=== PATIENT | female | born 1970 | race Caucasian/White ===

== ENCOUNTER → 2018-09-23 08:20 | Outpatient (CLI) | payer BC, SELFPAY ==
--- NOTE | 2018-09-23 08:28 | MM_ITS ---
MM Dig screening mamm BI w/CAD CAD Screening COMPARISON: Digital mammograms with CAD 07/05/2017 and 08/02/2015 INDICATION: There is no personal or family history of breast cancer. TECHNIQUE: Standard CC and MLO images were obtained. R2 CAD reviewed. FINDINGS: Moderate scattered fibroglandular densities are seen in both breasts and the findings are bilateral and symmetrical. There is minimal arterial calcification right breast. There is a subtle and questionable new asymmetric density left breast. This could be a summation shadow but recommend patient return for spot compression views and possibly ultrasound as well. There are no suspicious microcalcifications. IMPRESSION: Moderate diffuse breast density with possible new asymmetric lesion left breast BI-RADS Category: 0 Need Additional Imaging Evaluation RECOMMENDED FOLLOW-UP: IMM - IMMEDIATE FOLLOW-UP RECOMMENDED (A letter has been sent to the patient regarding results of the study.)
--- NOTE | 2018-09-23 08:44 | XR_ITS ---
XR DEXA axial skeleton HISTORY: ITS.REASON: screening ORDERING PHYSICIAN: Jeffry Reed MD PATIENT AGE: 48 years COMPARISON: None FINDINGS: The BMD measured at the Right femoral neck is 0.726 g/cm squared with a T score of -2.2. This is considered Osteopenic according to the World Health Organization criteria. Fracture risk is Moderate. Treatment is advised. L1 L4 density and T score -2.1 consistent with osteopenia IMPRESSION: Osteopenia with moderate fracture risk. Treatment is advised. Recommend follow-up exam September 2020
== END ==
PROVIDERS: PCP Internal Medicine; Visit Provider Obstetrics & Gynecology
DX: Z12.31 Encounter for screening mammogram for malignant neoplasm of breast (principal); Z13.820 Encounter for screening for osteoporosis; Z78.0 Asymptomatic menopausal state
CPT/HCPCS: 77067; 77080

== ENCOUNTER → 2019-10-02 09:09 | Outpatient (CLI) | payer BC, SELFPAY ==
--- NOTE | 2019-10-02 09:09 | XR_ITS ---
PROCEDURE: XR DEXA AXIAL SKELETON CLINICAL HISTORY: f/u osteopenia COMPARISON: No exams were available for comparison FINDINGS: Utilizing the left femoral neck bone mineral density was measured to be 0.66 grams/squared centimeter. Z-score is -0.9. T-score is not reported. Utilizing L1 through L4 vertebrae total bone mineral density is 0.76 grams/squared centimeter. Z-score is -1.8 T-score is not reported. IMPRESSION: normal mineralization. Dictated by: Raleigh Bran 10/02/2019 12:25 Electronically signed by Raleigh Bran in [place] 10/02/2019 12:25
--- NOTE | 2019-10-02 09:09 | MM_ITS ---
PROCEDURE: MM DIG SCREENING MAMM BI W/CAD CLINICAL INDICATION: screening There is no personal or family history of breast cancer. The patient is on estradiol. COMPARISON: [facility] DIG MAMM-SCREEN ADA from 08/02/2015 [facility] DIG MAMM-SCREEN ADA W/CAD from 07/05/2017 [facility] MM Dig screening mamm BI w/CAD from 09/23/2018 TECHNIQUE: Standard CC and MLO images were obtained. Carlos images were performed. FINDINGS: Scattered fibroglandular densities are seen throughout both breasts. The findings of bilateral and symmetrical. There is no new or suspicious lesion in either breast and no suspicious microcalcifications. Carlos images were reviewed showing no suspicious abnormality. IMPRESSION: Fibrofatty parenchyma with no suspicious lesions seen BI-RAD Category: 1 Negative FOLLOW-UP: 1YR 1 Year Follow-up (A letter has been sent to the patient regarding results of the study.) Dictated by: Dr. Tavon Farias MD 10/06/2019 11:[address] Tavon Farias MD in [place] 10/06/2019 11:05
== END ==
PROVIDERS: PCP Obstetrics & Gynecology; Visit Provider Obstetrics & Gynecology
DX: M85.89 Other specified disorders of bone density and structure, multiple sites (principal); Z12.31 Encounter for screening mammogram for malignant neoplasm of breast
CPT/HCPCS: 77063; 77067; 77080

== ENCOUNTER → 2020-08-26 10:15 | Outpatient (CLI) | payer BC, SELFPAY ==
--- NOTE | 2020-08-26 10:21 | XR_ITS ---
PROCEDURE: XR PELVIS 1-2V CLINICAL INDICATION: S/P FALL,RT BUTTOCK PAIN,RT THIGH PAIN Posttraumatic pain COMPARISON: No exams were available for comparison TECHNIQUE: XR Pelvis AP View FINDINGS: No fracture or dislocation is evident. No significant degenerative change. Suture lines present in both right and left aspect and central aspect of the pelvis IMPRESSION: No acute findings. Dictated by: Lester Pfeiffer MD 08/26/2020 10:34 Lester Pfeiffer MD in [place] 08/26/2020 10:34
== END ==
PROVIDERS: PCP Internal Medicine; Visit Provider Internal Medicine
DX: R10.2 Pelvic and perineal pain (principal); M25.551 Pain in right hip; M79.651 Pain in right thigh; W19.XXXA Unspecified fall, initial encounter
CPT/HCPCS: 72170

== ENCOUNTER 2020-09-27 10:39 | Emergency (ER) | payer BC, SELFPAY ==
[2020-09-27 10:45] VITALS: BP 113/65; PULSE 68; RESP 18; TEMP 37.2; O2SAT 98; BMI 28.7
--- NOTE | 2020-09-27 11:11 | HMH.EDUTC ---
[facility] [place] Disposition Clinical Impression: Encounter for laboratory testing for COVID-19 virus, Nausea Disposition: Home, Self-Care Condition on Discharge: Good Instructions: DI for COVID-19 (Suspected or Confirmed ), Coronavirus Disease 2019, Preventing the Spread of Coronavirus Discharge Instructions Additional Instructions: *Monitor Temp, Over the counter Motrin or Tylenol as directed/as needed Tylenol every 4 hours and Motrin every 6 hours (as long as your family doctor has told you that you can take it) for fever or pain. and straight to ER if unable to lower temp less than 101.0 after medication given *Warm salt water gargles may help to soothe the throat *Throat Lozenges *Warm fluids like tea with honey may help to soothe the throat *Sleep elevated *Humidifier/Vaporizer Follow up IMMEDIATELY for new or worsening symptoms or no Noticeable improvement over the next 48-72 hours. 911 for difficulty breathing or swallowing You were tested for today for COVID19 your test result should be back in the next 24-48 hours, you may call to the [facility] to see if your test results are back in the next 48 hours [phone] [facility] hours are 9am-9pm You was given a handout with instructions for Self Quarantine and Self isolation for while you wait on test results and what to do if they are positive If you are positive the Health Dept will be contacting you also Prescriptions: Ondansetron [Zofran 4mg ODT] 4 mg PO TIDP PRN #12 tab PRN Reason: Nausea Transmission Status: Pending to [facility] Referrals: Benjie Wilson [Primary Care Provider] - As needed Forms: Work/School Release Time of Disposition: 11:25 Medical Decision Making - Garrick Inquiry Pt receiving controlled substance: No Garrick was queried for this patient: No Vital Signs: 09/27/20 10:45 Temperature 98.9 F Temperature Source Oral Pulse Rate [Right Brachial] 68 Respiratory Rate 18 Blood Pressure [Right Arm] 113/65 Blood Pressure Mean [Right Arm] 81 Blood Pressure Source [Right Arm] Automatic Cuff Blood Pressure Position [Right Arm] Sitting 02 Sat by Pulse Oximetry 98 Oxygen Delivery Method Room Air - Lab Data Lab results reviewed: Yes: I reviewed the patient's lab results. Orders (Tests/Meds): ORDERS Category Date Time Status Covid-19 Nasal PCR Sendout P&C Stat Lab 09/27/20 10:55 Received Medical Decision Narrative: Discussed CXR and patient declined at this time States that she wanted to get tested for COVID and would follow up with her PCP if it was negative [facility] [place] HPI - General Stated complaint: dyspnea Time Seen by Provider: 09/27/20 11:11 Mode of Arrival: Ambulatory Source of Information: Patient Limitations: No Limitations Description of Symptoms (Recalled from Triage Doc. by RN): PATIENT C/O SOA AND NAUSE X 4-5 DAYS. ALSO C/O MID BACK PAIN. HEENT Symptoms (Recalled from RN notes): No Resp Symptoms (Recalled from RN notes): Yes Skin Symptoms (Recalled from RN notes): No MS Symptoms (Recalled from RN notes): Yes Functional Status (Recalled from RN notes): WNL - History of Present Illness Provider Complaint: Patient state that she has feeling short of breath on and off with nausea for about 5 days States that she wasnt sure if she may have been having asthma attacks or if she may have been around someone with COVID States that she used her inhaler earlier and it helped but she wanted to come in and get tested States that she also been having achy like feeling in her lower back area and wanted to have her urine checked - Related Data Home Medications Medication Instructions Recorded Confirmed omeprazole magnesium 20 mg 20 mg PO BID tab 08/11/18 08/14/19 tablet,delayed release sertraline 50 mg tablet 50 mg PO DAILY 08/11/18 08/14/19 Previous Rx's Medication Instructions Recorded estradiol 1 mg tablet 1 mg PO DAILY #90 tab 08/14/19 Ondansetron [Zofran 4mg ODT] 4 mg PO TIDP PRN #12 tab 09/27/20 Tyson
[2020-09-27 11:27] VITALS: BP 113/65; PULSE 68; RESP 18; TEMP 37.2; O2SAT 98
[2020-09-27 15:56] LABS: Apearance,Urine Clear (Clear); Bilirubin,Urine Negative (Negative); Blood, Urine Negative (Negative); Color,Urine Yellow (Yellow); Glucose,Urine (UA) Negative (Negative); Ketones,Urine Negative (Negative); Protein,Urine Negative (Negative); Specific Gravity, Urine 1.015 (1.005-1.030)
[2020-09-27 15:57] LABS: UTC Leukocyte Esterase,Urine Negative (Negative); UTC Nitrate,Urine Negative (Negative); Urobilinogen,Urine 0.2 EU/dl (0.2)
[2020-09-28 08:38] LABS: Covid-19 Nasal PCR Sendout P&C NEGATIVE
== END 2020-09-27 11:30 | disposition home or self-care (01) ==
PROVIDERS: Emergency Provider Nurse Practitioner; PCP Internal Medicine
DX: Z20.822 Contact with and (suspected) exposure to COVID-19 (principal); R06.02 Shortness of breath; R11.0 Nausea; F17.210 Nicotine dependence, cigarettes, uncomplicated
CPT/HCPCS: 81003; 99202; G0463; U0004

== ENCOUNTER 2020-12-14 11:42 | Emergency (ER) | payer BC, SELFPAY ==
[2020-12-14 11:43] VITALS: BP 123/86; PULSE 82; RESP 20; TEMP 36.8; O2SAT 97; BMI 28.7
--- NOTE | 2020-12-14 11:52 | CT_ITS ---
PROCEDURE: CT HEAD/BRAIN WO CON CLINICAL INDICATION: headache Severe headache with numbness in arms COMPARISON: No exams were available for comparison TECHNIQUE: Axial images obtained. All CT scans at the facility use one or more dose reduction, viz: automated exposure control, ma/kV adjustment per patient size (including targeted exams where dose is matched to indication, i.e. head), or iterative reconstruction technique. FINDINGS: No midline shift, mass effect, intracranial hemorrhage, hydrocephalus, or extra-axial fluid collection is evident. The calvarium has an unremarkable appearance. No mastoid effusion is apparent. There is sparse bony septa in the right mastoid sinus compared to the left side which could be due to prior infection or surgery. No air-fluid levels are evident. No sinus air-fluid level. IMPRESSION: No acute intracranial finding Dictated by: Lester Pfeiffer MD 12/14/2020 13:24 Lester Pfeiffer MD in [place] 12/14/2020 13:24
--- NOTE | 2020-12-14 11:52 | CT_ITS ---
Procedure: CT ANGIO NECK CLINICAL HISTORY: headache Severe headache with numbness in the arms COMPARISON: CT CT ANGIO HEAD from 12/14/2020 TECHNIQUE: IV Contrast: 100ml Isovue 370 Axial images obtained with sagittal and coronal reformats. All CT scans at the facility use one or more dose reduction, viz: automated exposure control, ma/kV adjustment per patient size (including targeted exams where dose is matched to indication, i.e. head), or iterative reconstruction technique. FINDINGS: CTA neck: Unremarkable aortic arch and great vessels. The carotids have an unremarkable appearance. No stenosis, ulcerations, aneurysms, or dissections evident. Small focus of eccentric calcific plaque is present in the left proximal ICA laterally without stenosis. The right vertebral is dominant. No vertebral stenosis or dissection CTA head: No aneurysm, AVM, or major intracranial occlusive process is evident. There is a 7 mm right thyroid nodule. No enhancing lesions are evident. IMPRESSION: Negative CTA of the neck and head Dictated by: Lester Pfeiffer MD 12/14/2020 13:34 Lester Pfeiffer MD in [place] 12/14/2020 13:34
[2020-12-14 12:00] VITALS: BP 139/79; PULSE 73; O2SAT 97
[2020-12-14 12:30] LABS: Basophils # 0.1 K/mm3 (0-0.2); Basophils % 0.8 % (0.1-2.0); Eosinophils # 0.2 K/mm3 (0.0-0.4); Eosinophils % 3.2 % (0.1-12.0); Hematocrit 43.7 % (37.0-47.0); Hemoglobin 14.3 g/dL (12.2-16.2); Lymphocytes # 2.3 K/mm3 (0.7-4.5); Lymphocytes % 38.5 % (10-50); Mean Corpuscular HGB Conc 32.8 g/dL (31.8-35.4); Mean Corpuscular Volume 94.6 fl (81-99); Mean Platelet Volume 7.4 fl (7.4-10.4); Monocytes # 0.3 K/mm3 (0.1-1.0); Monocytes % 4.3 % (1.7-9.3); Neutrophils # 3.2 K/mm3 (1.8-7.8); Neutrophils % 53.3 % (37.0-80.0); Platelet Count 292 K/mm3 (142-424); Red Blood Count 4.62 M/mm3 (4.20-5.40); Red Cell Distribution Width 12.8 % (11.5-17.5); White Blood Count 6.1 K/mm3 (4.8-10.8)
[2020-12-14 12:31] LABS: Chloride 108 mmol/L (98-107)
[2020-12-14 12:32] LABS: Potassium 4.1 mmoL/L (3.5-5.1); Sodium 142 mmol/L (136-145)
--- NOTE | 2020-12-14 12:32 | ECG_ITS ---
APPROVED REPORT Exam: Resting ECG HR:68 bpm ECG Measurements Heart Rate 68 AXES FL 140 P 51 QRSd 82 QRS 62 QT 402 T 57 QTc 427 Conclusion Normal sinus rhythm Normal ECG Electronically signed by : Maykel Ring, 12/15/2020 17:32:45
[2020-12-14 12:34] LABS: Alanine Aminotransferase 26 U/L (12-78); Albumin Level 4.8 g/dl (3.5-5.0); Albumin/Globulin Ratio 1.7 (1.1-1.8); Alkaline Phosphatase 86 U/L (38-126); Anion Gap 12.1 mEq/L (5-15); Aspartate Amino Transferase 39 U/L (14-36); Bilirubin,Total 0.8 mg/dl (0.2-1.3); Blood Urea Nitrogen 12 mg/dl (7-17); Calcium 9.9 mg/dl (8.4-10.2); Carbon Dioxide 26 mmol/L (22.0-30.0); Creatinine Clearance Estimated 98 mL/min (50-200); Estimated Glomerular Filt Rate 76 ml/min (>60); GFR (African American) 92 ML/MIN (>60); Globulin 2.9 g/dL (1.3-3.2); Glucose 109 mg/dl (74-100); Total Protein,Serum 7.7 g/dl (6.3-8.2)
[2020-12-14 12:35] LABS: Magnesium 1.6 mg/dl (1.6-2.3)
--- NOTE | 2020-12-14 12:35 | HMH.EDGENADL ---
ED Disposition Clinical Impression: Headache Disposition: Home, Self-Care Condition on Discharge: Good Additional Instructions: Return for worsening headache numbness weakness or tingling in arms or legs or any other concerns within 8 hours otherwise follow-up with your primary care physician within the next few days Referrals: Benjie Wilson [Primary Care Provider] - - Critical Care Critical Care Time: No Attestation: On 12/14/20, the high probability of a clinically significant, sudden or life threatening deterioration of the following system(s) required my full and direct attention, intervention and personal management. The time I documented below is in addition to time spent performing reported procedures but includes the following listed in this critical care notation. Medical Decision Making - Medical Records Medical records reviewed: Yes: I reviewed the patient's medical records. - Garrick Inquiry Pt receiving controlled substance: No Vital Signs: 12/14/20 11:43 12/14/20 12:00 Temperature 98.2 F Temperature Source Oral Pulse Rate 73 Pulse Rate [Right Radial] 82 Respiratory Rate 20 Blood Pressure 139/79 Blood Pressure [Right Arm] 123/86 Blood Pressure Mean 99 Blood Pressure Mean [Right Arm] 98 Blood Pressure Source [Right Arm] Automatic Cuff Blood Pressure Position [Right Arm] Sitting 02 Sat by Pulse Oximetry 97 97 Oxygen Delivery Method Room Air - Lab Data Lab Results 12/14/20 12:11: WBC 6.1, RBC 4.62, Hgb 14.3, Hct 43.7, MCV 94.6, MCH 31.0, MCHC 32.8, RDW 12.8, Plt Count 292, MPV 7.4, Neut % (Auto) 53.3, Lymph % (Auto) 38.5, [place] % (Auto) 4.3, Eos % (Auto) 3.2, Baso % (Auto) 0.8, Neut # (Auto) 3.2, Lymph # (Auto) 2.3, [place] # (Auto) 0.3, Eos # (Auto) 0.2, Baso # (Auto) 0.1 12/14/20 12:11: Sodium 142, Potassium 4.1, Chloride 108 H, Carbon Dioxide 26, Anion Gap 12.1, BUN 12, Creatinine 0.80, Estimated Creat Clear 98, Estimated GFR 76, Est GFR ( Amer) 92, Glucose 109 H, Calcium 9.9, Magnesium 1.6, Total Bilirubin 0.8, AST 39 H, ALT 26, Alkaline Phosphatase 86, Total Protein 7.7, Albumin 4.8, Globulin 2.9, Albumin/Globulin Ratio 1.7, TSH 1.93 12/14/20 12:11: Serum HCG, Qual Negative Result diagrams: 12/14/20 12:11 12/14/20 12:11 Orders (Tests/Meds): ED MEDICATIONS Discontinued Medications Generic Name Dose Route Start Last Admin Trade Name Dimitri PRN Reason Stop Dose Admin Diphenhydramine HCl 25 mg 12/14/20 11:53 12/14/20 12:04 Diphenhydramine 50mg/Ml Vial IV 12/14/20 11:54 25 mg ONCE ONE Administration Sodium Chloride 1,000 mls @ 999 mls/hr 12/14/20 12:00 12/14/20 12:04 Sod Chlor 0.9% 1000ml Bag IV 12/14/20 13:00 999 mls/hr .Q1H1M TATI Administration Iopamidol 100 ml 12/14/20 13:02 12/14/20 13:03 Iopamidol-370 (76%);100ml Bottle IV 12/14/20 13:03 100 ml ONCE ONE Administration Metoclopramide HCl 10 mg 12/14/20 11:53 12/14/20 12:04 Metoclopramide Hcl 10mg/2ml Vial IVP 12/14/20 11:54 10 mg ONCE ONE Administration Sodium Chloride 50 ml 12/14/20 13:02 12/14/20 13:03 0.9 % Sodium Chloride 50 Ml Vial IV 12/14/20 13:03 50 ml ONCE ONE Administration Sodium Chloride 10 ml 12/14/20 13:02 12/14/20 13:03 Sodium Chloride 0.9% 10ml Syr (Rad Only) IV 12/14/20 13:03 10 ml ONCE ONE Administration ORDERS Category Date Time Status EKG Request [ECG Request by /Marley] Stat Y 12/14/20 11:53 Ordered Medical Decision Narrative: 50-year-old female presents with headache and bilateral numbness for the last few days as above. She has normal neurological exam and NIHSS = 0. She is outside the window for TPA. ABCD 2 score is 0. Symptoms are more consistent with migrainous complex then stroke. CT head and CT angio obtained. No concern for meningitis, subarachnoid hemorrhage, or other emergent pathology at this time. Given Reglan and Benadryl as well. On reassessment at 1:50 PM headache is gone and she is feeling
[2020-12-14 12:39] LABS: HCG Qualitative, Serum Negative (Negative)
--- NOTE | 2020-12-14 12:52 | PC.NURSE ---
pt to CT
[2020-12-14 13:05] LABS: Thyroid Stimulating Hormone 1.93 uIU/mL (0.465-4.68)
[2020-12-14 13:18] VITALS: BP 121/67; PULSE 64; O2SAT 97
[2020-12-14 13:30] VITALS: BP 117/69; PULSE 64; O2SAT 97
[2020-12-14 14:05] VITALS: BP 119/65; PULSE 67; RESP 18; TEMP 36.8; O2SAT 98
== END 2020-12-14 14:05 | disposition home or self-care (01) ==
PROVIDERS: Emergency Provider Emergency Medicine; PCP Internal Medicine
DX: R51.9 Headache, unspecified (principal); R20.0 Anesthesia of skin; F17.210 Nicotine dependence, cigarettes, uncomplicated; R73.9 Hyperglycemia, unspecified
CPT/HCPCS: 70450; 70496; 70498; 80053; 83735; 84443; 84703; 85025; 93005; 96365; 96375; 99282; Q9967

== ENCOUNTER → 2020-12-29 14:32 | Outpatient (CLI) | payer BC, SELFPAY ==
[2020-12-29 15:48] LABS: Basophils % 0.5 % (0.1-2.0); Eosinophils # 0.2 K/mm3 (0.0-0.4); Eosinophils % 2.9 % (0.1-12.0); Hematocrit 40.6 % (37.0-47.0); Hemoglobin 13.4 g/dL (12.2-16.2); Lymphocytes # 2.6 K/mm3 (0.7-4.5); Mean Corpuscular Hemoglobin 31.2 pg (27.0-31.2); Mean Corpuscular Volume 94.5 fl (81-99); Mean Platelet Volume 7.4 fl (7.4-10.4); Monocytes # 0.3 K/mm3 (0.1-1.0); Monocytes % 3.6 % (1.7-9.3); Platelet Count 288 K/mm3 (142-424); White Blood Count 8.2 K/mm3 (4.8-10.8)
[2020-12-29 15:59] LABS: Chloride 104 mmol/L (98-107); Potassium 4.3 mmoL/L (3.5-5.1); Sodium 137 mmol/L (136-145)
[2020-12-29 16:02] LABS: Alanine Aminotransferase 25 U/L (12-78); Albumin Level 4.6 g/dl (3.5-5.0); Alkaline Phosphatase 99 U/L (38-126); Anion Gap 11.3 mEq/L (5-15); Aspartate Amino Transferase 30 U/L (14-36); Bilirubin,Direct 0.1 mg/dl (0.0-0.4); Bilirubin,Indirect 0.4 mg/dL (0.0-0.9); Bilirubin,Total 0.5 mg/dl (0.2-1.3); Bilirubin,Unconjugated 0.5 mg/dL (0.0-1.1); Blood Urea Nitrogen 11 mg/dl (7-17); Calcium 9.6 mg/dl (8.4-10.2); Carbon Dioxide 26 mmol/L (22.0-30.0); Cholesterol 224 mg/dl (140-200); Estimated Glomerular Filt Rate 76 ml/min (>60); GFR (African American) 92 ML/MIN (>60); Glucose 104 mg/dl (74-100); Total Protein,Serum 7.2 g/dl (6.3-8.2); Triglycerides 182 mg/dl (30-150); VLDL Cholesterol 36 mg/dL (0-40)
[2020-12-29 16:03] LABS: Chol/HDL Ratio 3.6 (1-3.5); HDL Cholesterol 62 mg/dl (40-60)
[2020-12-29 16:12] LABS: NT Pro Brain Natriuretic Pep. 208 pg/mL (0-125)
[2020-12-29 16:14] LABS: Direct LDL Cholesterol 126.02 mg/dL (100-129)
[2020-12-29 16:20] LABS: Free T4 (Free Thyroxine) 0.99 ng/dl (0.78-2.19)
[2020-12-29 16:33] LABS: Thyroid Stimulating Hormone 1.66 uIU/mL (0.465-4.68)
[2020-12-29 16:34] LABS: Coronavirus 19 IgG Antibody Negative (Negative); Coronavirus 19 IgM Antibody Negative (Negative)
== END ==
PROVIDERS: PCP Internal Medicine; Visit Provider Internal Medicine Cardiovascular Disease
DX: Z01.812 Encounter for preprocedural laboratory examination (principal); Z20.822 Contact with and (suspected) exposure to COVID-19; R07.9 Chest pain, unspecified; R06.00 Dyspnea, unspecified; R55 Syncope and collapse; R11.0 Nausea; R20.0 Anesthesia of skin; R53.83 Other fatigue; R19.7 Diarrhea, unspecified
CPT/HCPCS: 36415; 80048; 80061; 80076; 83880; 84439; 84443; 85025; 86328; U0003

== ENCOUNTER → 2021-01-11 14:18 | Outpatient (CLI) | payer BC, SELFPAY ==
--- NOTE | 2021-01-11 14:18 | CA_ITS ---
APPROVED REPORT EXAM: Comprehensive 2D, Doppler, and color-flow Echocardiogram [employer] Teacher: Kita Barajas CRT Ht: 5 ft 3 in Wt: 162lbs BSA: 1.77 BP: 116/67 mmHg Indications: SOB, Chase's esphagus 2D Dimensions LVOT 1.95 cm (M/F) 1.5-2.5 LA Volume 34.10 mL LA Volume Index 19.30 mL/m2 (M/F) 16-34 M-Mode Dimensions RVDd 2.19 cm (0.9-2.6) LA Diam 2.78 cm (1.9-4.0) LVDd 5.06 cm (3.5-5.7) Ao Diam 3.25 cm (2.0-3.7) LVDs 3.59 cm (3.5-5.7) IVSd 1.00 cm (0.6-1.1) PWd 1.00 cm (0.6-1.1) EF (Teich) 55.50% FS 29.10% EDV (Teich) 121.60 mL TAPSE 2.13 (<1.7) ESV (Teich) 54.10 mL LV Diastology E Decel Time 157.00 (160-240 msec) E/A Ratio 1.43 MED E' 13.20 (< 7 cm/sec) MED A' 8.80 cm/s E'/MED E' Ratio 6.94 (>14) LAT E' 11.80 (<10 cm/sec) LAT A' 9.00 cm/s E/LAT E' Ratio 7.76 (>14) Aortic Valve AO Peak GR. 6.60 mmHg Mitral Valve MV A Velocity 64.00 (40-130 cm/s) E/A Ratio 1.43 MV Decel. Time 157.00 (160-240 ms) Pulmonary Valve PV Peak Velocity 79.00 (50-150 cm/s) Tricuspid Valve TR P. Velocity 319.00 cm/s RAP Estimate 10.00 mmHg RVSP 50.60 mmHg Left Ventricle Left atrium is normal size, left ventricle is normal size, there is no concentric left ventricular hypertrophy, visually estimated ejection fraction 55% with no regional wall motion abnormality, diastolic parameters are within normal range. Right Ventricle Right atrium and right ventricle are normal size and contractility. Aortic Valve Aortic valve is minimally thickened and fibrosed, there is no aortic stenosis or aortic insufficiency. Mitral Valve Mitral valve is grossly normal, there is trace mitral regurgitation. Tricuspid Valve Tricuspid grossly normal, there is trace tricuspid regurgitation. Tricuspid regurgitation jet velocity is inadequate for calculation of the right ventricular systolic pressure. Pulmonic Valve Pulmonic valve is poorly visualized. Great Vessels Aortic root is normal size. Pericardium No significant pericardial effusion noted. Conclusion 1. Normal left ventricular size, preserved left ventricular systolic function, visually estimated ejection fraction 55% with no regional wall motion abnormality, diastolic parameters are within normal range. 2. Trace mitral and tricuspid regurgitation. 3. No significant pericardial effusion noted. Electronically signed by : Wilton Grigsby, 01/12/2021 09:39:09
--- NOTE | 2021-01-11 15:05 | CT_ITS ---
PROCEDURE: CT CHEST WO CON CLINICAL INDICATION: dyspnea Dyspnea [id number] Smoker COMPARISON: No exams were available for comparison TECHNIQUE: Axial images obtained with sagittal and coronal reformats. All CT scans at the facility use one or more dose reduction, viz: automated exposure control, ma/kV adjustment per patient size (including targeted exams where dose is matched to indication, i.e. head), or iterative reconstruction technique. FINDINGS: HEART AND MEDIASTINAL STRUCTURES: No mediastinal or hilar mass or adenopathy. There is some mixed fat and soft tissue density in the anterior mediastinum having the appearance of residual thymic tissue LUNGS AND PLEURAL SPACES: COPD changes with some scattered areas of scarring. There is evidence of old granulomatous disease. No lobar consolidation or suspicious nodules evident. No effusions. BONY STRUCTURES: No acute bony abnormalities apparent. UPPER ABDOMEN: Prior cholecystectomy. ADDITIONAL FINDINGS: There are few scattered small axillary lymph nodes. IMPRESSION: COPD with evidence of old granulomatous disease. No acute finding. Dictated by: Lester Pfeiffer MD 01/12/2021 05:59 Lester Pfeiffer MD in [place] 01/12/2021 05:59
== END ==
PROVIDERS: PCP Internal Medicine; Visit Provider Internal Medicine Cardiovascular Disease
DX: R07.9 Chest pain, unspecified (principal); R06.00 Dyspnea, unspecified; R53.83 Other fatigue; K21.9 Gastro-esophageal reflux disease without esophagitis
CPT/HCPCS: 71250; 93306

== ENCOUNTER → 2021-01-16 08:05 | Outpatient (CLI) | payer BC, SELFPAY ==
[2021-01-16 09:11] LABS: Anion Gap 8.1 mEq/L (5-15); Blood Urea Nitrogen 11 mg/dl (7-17); Calcium 9.6 mg/dl (8.4-10.2); Carbon Dioxide 27 mmol/L (22.0-30.0); Chloride 107 mmol/L (98-107); Estimated Glomerular Filt Rate 89 ml/min (>60); GFR (African American) 107 ML/MIN (>60); Glucose 94 mg/dl (74-100); Potassium 5.1 mmoL/L (3.5-5.1); Sodium 137 mmol/L (136-145)
[2021-01-16 10:09] LABS: Coronavirus 19 IgG Antibody Negative (Negative); Coronavirus 19 IgM Antibody Negative (Negative)
== END ==
PROVIDERS: Internal Medicine Cardiovascular Disease; Visit Provider Surgery
DX: Z01.812 Encounter for preprocedural laboratory examination (principal); Z11.52 Encounter for screening for COVID-19; Z13.810 Encounter for screening for upper gastrointestinal disorder; K22.70 Barrett's esophagus without dysplasia; R07.9 Chest pain, unspecified; R06.00 Dyspnea, unspecified; R19.7 Diarrhea, unspecified; K21.9 Gastro-esophageal reflux disease without esophagitis; E78.5 Hyperlipidemia, unspecified; R20.0 Anesthesia of skin; R53.83 Other fatigue; Z72.0 Tobacco use; Z12.11 Encounter for screening for malignant neoplasm of colon; Z86.010 Personal history of colon polyps
CPT/HCPCS: 36415; 80048; 86328

== ENCOUNTER 2021-01-18 08:24 | Day surgery (SDC) | payer BC, SELFPAY ==
[2021-01-11 13:36] VITALS: BMI 28.7
[2021-01-18] VITALS (7 sets, daily range): BP systolic 110–128; BP diastolic 69–77; PULSE 62–78; RESP 16–18; TEMP 36.4–36.6; O2SAT 97–100
--- NOTE | 2021-01-18 09:41 | P.PN_ITS ---
[facility] Anesthesia Checklist - Patient Identification Patient Identification: Arm Band - Structural Data Admitted From: Home Planned Operative Procedure/s: egd/colonoscopy Consent for Planned Operative Procedure(s) Verified: Yes Verified Documents: Surgical Consent, History and Physical - NPO Status Verified Time NPO: 00:00 - Additional verifications Anesthesia Reactions: No - Airway Assessment C-Spine Mobility Assessed: Yes (mp2) TMJ Mobility Assessed: Yes Dentition: Good Dentition - Neurological Assessment Level of Consciousness: Awake, Alert - Anesthesia Plan Anesthesia Risk discussed: Yes Anesthesia Plan: Verified ASA Class: II Anesthesia Type: MAC [facility] History I have reviewed the patient's past medical history: Yes Medical History: Reports:: Gastroesophageal Reflux Disease(GERD), Hyperlipidemia Denies:: Cancer, Diabetes Mellitus Type 1, Diabetes Mellitus Type 2, Internal Pacemaker, MRSA, Seizures *Have you ever received a pneumonia vaccine?: No *Have you received a flu vaccine this season?: No Anesthesia experience/problems:: nac Other Surgeries: Yes: Cholecystectomy, Colonoscopy, , Dilation and Curettage, Hysterectomy-Total, Tubal Ligation, Other. No: Pacemaker Amputation: No Fractures: No - *Social History Smoking Status: Current every day smoker Tobacco Type: cigarettes # Packs/Day (cigarettes): 1 Alcohol Intake: never Alcohol Intake Frequency:: other Substance Use Type: denies use *Occupational Status:: employed Housing: house Household Members: spouse *Travel in the last 8 weeks: None Family Hx:: No significant family history
--- NOTE | 2021-01-18 10:16 | HMH.SCOPE ---
- Procedure: Date: 01/18/21 Patient Date of :: 1970 Procedure Performed:: 1. Esophagogastroduodenoscopy with biopsies 2. Total colonoscopy to terminal ileum with polypectomy by snare and biopsy forceps Indications:: Patient is a 50-year-old female referred by Dr. Benjie Wilson for colonoscopy and EGD. She had undergone colonoscopy by Dr. Blake in 1996 which was unremarkable. She had upper endoscopy and colonoscopy performed by Dr. 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 She also had polyps removed from her colon. She had a follow-up upper endoscopy 6 months later on 02/15/2014. Dr. Chase performed colonoscopy on 08/03/2015 and recommended a 3-year follow-up. Of note, pathology from last upper endoscopy revealed reactive changes and chronic carditis without intestinal metaplasia. She has recently had some substernal chest pain. She does take Prilosec. Performing Provider:: Drew Webster MD Referring Provider:: Benjie Wilson MD Sedation:: MAC sedation Procedure:: Attention was first turned to upper endoscopy. Adequate intravenous sedation was achieved. Olympus endoscope was inserted via the oropharynx advanced to the esophagus. Gastroesophageal junction was encountered at approximately 38 cm from the incisors. There was some findings possibly consistent with Chase's esophagus. Stomach was cannulated and insufflated. Retroflexion revealed no evidence of any pathologic internal hemorrhoids. There were a couple of diminutive likely fundic gland polyps within the stomach. Gastric antral mucosal biopsies obtained for CLOtest for H. pylori. Pylorus was traversed. Duodenal bulb and duodenal sweep are unremarkable. Endoscope was withdrawn into the stomach. Gastric mucosal biopsies obtained for histopathologic analysis. Couple biopsies were obtained of the diminutive likely fundic gland polyps. The endoscope was withdrawn into the distal esophagus and numerous biopsies were obtained at the gastroesophageal junction to assess for possible Chase's esophagus. Endoscope was withdrawn. Patient was repositioned for colonoscopy. Variable stiffness Olympus colonoscope was inserted via the anus. It was advanced to the cecum. Colonic preparation was fair. Despite irrigation good visualization could not be achieved as there was still adherent to the colonic calles. The ileocecal valve and appendiceal orifice were identified and the colonoscope was advanced into the terminal ileum which appeared grossly normal. There was noted to be a possible polyp versus suction polyp in the cecum and this was removed with cold cutting snare. In the ascending colon there was a small adenomatous appearing polyp removed with cold cutting snare. At the hepatic flexure there was a small diminutive adenomatous polyp removed with cold cutting snare. As the colonoscope was withdrawn careful surveillance was carried out and irrigation was performed. However there was adherent stool too much of the colonic mucosal calles. In the descending colon there was a possible polyp. However the visualization was lost. Despite numerous readvancement and withdrawal of the colonoscope with reexamination of the area for prolonged period of time there was noted to be no evidence of any polyp. In the distal rectum there was a tiny diminutive hyperplastic appearing polyp removed with cold biopsy forceps. Retroflexion within the rectum revealed no evidence of any pathologic internal hemorrhoids. Colonoscope was withdrawn. Findings:: Possible Chase's esophagus Small likely fundic gland gastric polyps Fair colonic preparation Polyps as noted above Recommendations:: Pending the pathology likely repeat colonoscopy 1 year with alternative bowel preparation given the suboptimal bowel prep and findings of polyps. May need upper endoscopy as well pending the biopsies of the gastroeso
== END 2021-01-18 10:54 | disposition home or self-care (01) ==
LOC: OUTP 08:25
PROVIDERS: PCP Internal Medicine; Visit Provider Surgery
PROC: 0DJ08ZZ Inspection of Upper Intestinal Tract, Via Natural or Artificial Opening Endoscopic (ICD-10-PCS; CPT 43235; principal; 2021-01-18 09:30)
DX: Z12.11 Encounter for screening for malignant neoplasm of colon (principal); K63.5 Polyp of colon; K62.89 Other specified diseases of anus and rectum; K22.9 Disease of esophagus, unspecified; K31.9 Disease of stomach and duodenum, unspecified; Z87.19 Personal history of other diseases of the digestive system; Z86.010 Personal history of colon polyps; Z79.899 Other long term (current) drug therapy; K21.9 Gastro-esophageal reflux disease without esophagitis; E78.5 Hyperlipidemia, unspecified; Z90.49 Acquired absence of other specified parts of digestive tract; Z72.0 Tobacco use
CPT/HCPCS: 45385; 43239; 87339

== ENCOUNTER → 2021-01-26 11:51 | Outpatient (CLI) | payer BC, SELFPAY ==
[2021-01-26 12:14] LABS: Basophils # 0.1 K/mm3 (0-0.2); Basophils % 0.7 % (0.1-2.0); Eosinophils # 0.2 K/mm3 (0.0-0.4); Eosinophils % 3.6 % (0.1-12.0); Hematocrit 41.6 % (37.0-47.0); Hemoglobin 14.1 g/dL (12.2-16.2); Lymphocytes # 2.9 K/mm3 (0.7-4.5); Lymphocytes % 44.3 % (10-50); Mean Corpuscular HGB Conc 33.8 g/dL (31.8-35.4); Mean Corpuscular Hemoglobin 31.7 pg (27.0-31.2); Mean Corpuscular Volume 93.8 fl (81-99); Mean Platelet Volume 7.9 fl (7.4-10.4); Monocytes # 0.3 K/mm3 (0.1-1.0); Monocytes % 5.1 % (1.7-9.3); Neutrophils % 46.3 % (37.0-80.0); Platelet Count 307 K/mm3 (142-424); Red Blood Count 4.44 M/mm3 (4.20-5.40); White Blood Count 6.5 K/mm3 (4.8-10.8)
[2021-02-02 13:10] LABS: Alpha-1-Antitrypsin 132 mg/dL (101-187)
== END ==
PROVIDERS: Visit Provider Internal Medicine Pulmonary Disease
DX: J44.9 Chronic obstructive pulmonary disease, unspecified (principal)
CPT/HCPCS: 36415; 82103; 82104; 85025

== ENCOUNTER → 2021-02-24 13:04 | Outpatient (CLI) | payer BC, SELFPAY | PROVIDERS: PCP Internal Medicine; Visit Provider Internal Medicine Pulmonary Disease | DX: R06.09 Other forms of dyspnea (principal) | CPT/HCPCS: 94060; 94640; 94726; 94729 ==

== ENCOUNTER → 2021-03-09 10:53 | Outpatient (CLI) | payer BC, SELFPAY | PROVIDERS: PCP Internal Medicine; Visit Provider Internal Medicine Pulmonary Disease | DX: G47.33 Obstructive sleep apnea (adult) (pediatric) (principal) | CPT/HCPCS: G0399 ==

== ENCOUNTER 2021-08-28 13:34 | Emergency (ER) | payer BC, SELFPAY ==
[2021-08-28 14:30] VITALS: BP 107/64; PULSE 71; RESP 18; TEMP 36.9; O2SAT 98; BMI 24.8
--- NOTE | 2021-08-28 14:47 | HMH.EDUTC ---
[facility] [place] Disposition Clinical Impression: Bronchitis Sinusitis Qualifiers: Sinusitis location: unspecified location Chronicity: unspecified Qualified Code(s): J32.9 - Chronic sinusitis, unspecified Disposition: Home, Self-Care Condition on Discharge: Good Instructions: Sinusitis, DI for Sinusitis, Acute Bronchitis Additional Instructions: ? Start antibiotic today. Be sure to complete entire prescription even if feeling better ? Monitor temp. Tylenol every 4 hours as needed and / or ibuprofen every 6 hours as needed ( As long as your primary care physician has told you that it ok to take both. For fever/aches/pains ER if no less than 101 despite Tylenol or Motrin ? Humidifier/vaporizer or hot steamy shower ? Inhaler every 4-6 hours as needed like we discussed. If unsure how to use it, ask pharmacist to demonstrate how. Should help open airways and improve cough, wheezing, and shortness of breath *Tessalon Perles will not cause drowsiness but use at bedtime to help stop cough so that you may get some rest. *Start steroid today. Helps with inflammation therefore, cough and wheezing. Follow directions on the package. Reviewed side effects. Patient reports taking them before. Follow up IMMEDIATELY for new or worsening of symptoms OR no noticeable improvement over the next 48-72 hours. 911 immediately for any life threatening symptoms such as chest pain or difficulty breathing You were tested for today for Upper Respiratory panel with COVID19 your test result should be back in the next 24-48 hours, you Check your results on the [facility] for your COVID test results if you have trouble logging on you may call You was given a handout with instructions for Self Quarantine and Self isolation for while you wait on test results and what to do if they are positive If you are positive the Health Dept will be contacting you also Make sure to take your Vitamins Vit. C Vit D and Zinc if you can take them Prescriptions: Albuterol Sulfate [Proventil-HFA 90mcg/puff Inh] 1 - 2 puffs IH Q6HP PRN #1 each PRN Reason: Shortness Of Breath Transmission Status: Pending to [facility] Benzonatate [Benzonatate 100mg cap] 100 mg PO Q8HP PRN #15 cap PRN Reason: Cough Transmission Status: Pending to [facility] methylPREDNISolone [Medrol 4mg tab] 4 mg PO DIRECTED #21 tab Transmission Status: Pending to [facility] Azithromycin [Z-Aiden 250mg Tab] 250 mg PO DIRECTED #6 tab Transmission Status: Pending to [facility] Referrals: Benjie Wilson [Primary Care Provider] - As needed Forms: Work/School Release Time of Disposition: 15:02 Medical Decision Making - Garrick Inquiry Pt receiving controlled substance: No Garrick was queried for this patient: No Vital Signs: 08/28/21 14:30 Temperature 98.5 F Temperature Source Oral Pulse Rate [Right Brachial] 71 Respiratory Rate 18 Blood Pressure [Right Arm] 107/64 L Blood Pressure Mean [Right Arm] 78 Blood Pressure Source [Right Arm] Automatic Cuff Blood Pressure Position [Right Arm] Sitting 02 Sat by Pulse Oximetry 98 Oxygen Delivery Method Room Air Orders (Tests/Meds): ORDERS Category Date Time Status Covid-19 Nasal PCR ([facility]) Routine Lab 08/28/21 14:37 Ordered Medical Decision Narrative: Patient states that she has taken both azithromycin and Medrol in the past without reactions or complications [facility] [place] HPI - General Stated complaint: cough sob runny nose congestion headache Time Seen by Provider: 08/28/21 14:47 Mode of Arrival: Ambulatory Source of Information: Patient Limitations: No Limitations Description of Symptoms (Recalled from Triage Doc. by RN): PATIENT C/O CONGESTION, NAUSEA, AND PRODUCTIVE COUGH X 2 DAYS HEENT Symptoms (Recalled from RN notes): No Resp Symptoms (Recalled from RN notes): Yes Skin Symptoms (Recalled from RN notes): No MS Symptoms (Recalled from RN notes): No Functional Sta
[2021-08-28 15:25] VITALS: BP 107/64; PULSE 71; RESP 18; TEMP 36.9; O2SAT 98
== END 2021-08-28 15:26 | disposition home or self-care (01) ==
PROVIDERS: Emergency Provider Nurse Practitioner; PCP Internal Medicine
DX: J20.9 Acute bronchitis, unspecified (principal); J32.9 Chronic sinusitis, unspecified; K21.9 Gastro-esophageal reflux disease without esophagitis; F17.210 Nicotine dependence, cigarettes, uncomplicated
CPT/HCPCS: 99202; C9803; G0463; U0003; U0005

== ENCOUNTER → 2021-08-29 10:55 | Outpatient (CLI) | payer BC, SELFPAY ==
--- NOTE | 2021-08-29 10:56 | MM_ITS ---
PROCEDURE INFORMATION: Exam: MG Bilateral Screening 3D Mammography Exam date and time: 08/29/2021 10:56 AM Age: 51 years old Clinical indication: Encounter for screening mammogram for malignant neoplasm of breast TECHNIQUE: Imaging protocol: Bilateral screening tomosynthesis and 2D mammography including computer-aided detection (CAD) when performed. COMPARISON: 1. MG MM DIG SCREENING MAMM BI W/CAD 10/02/2019 9:21 AM 2. MG SCBI MM Dig screening mamm BI w/CAD 09/23/2018 9:20 AM FINDINGS: MAMMOGRAPHY: Breast composition: The breast tissue is composed of scattered areas of fibroglandular density. Mass: None. Architectural distortion: None. Calcifications: No suspicious calcifications. Asymmetric density: None. Skin thickening: None. Axillary adenopathy: None. IMPRESSION: No mammographic evidence of malignancy. Annual screening is recommended unless otherwise clinically indicated. ASSESSMENT: BI-RADS Category 1: Negative
== END ==
PROVIDERS: PCP Internal Medicine; Visit Provider Internal Medicine
DX: Z12.31 Encounter for screening mammogram for malignant neoplasm of breast (principal)
CPT/HCPCS: 77063; 77067

== ENCOUNTER → 2021-10-16 14:38 | Outpatient (CLI) | payer BC, SELFPAY ==
[2021-10-16 17:28] LABS: Basophils % 0.7 % (0.1-2.0); Eosinophils # 0.2 K/mm3 (0.0-0.4); Eosinophils % 3.6 % (0.1-12.0); Hematocrit 41.5 % (37.0-47.0); Hemoglobin 13.3 g/dL (12.2-16.2); Lymphocytes # 2.7 K/mm3 (0.7-4.5); Mean Corpuscular HGB Conc 32.1 g/dL (31.8-35.4); Mean Corpuscular Hemoglobin 32.1 pg (27.0-31.2); Mean Platelet Volume 8.9 fl (7.4-10.4); Monocytes # 0.3 K/mm3 (0.1-1.0); Monocytes % 5.1 % (1.7-9.3); Neutrophils % 47.6 % (37.0-80.0); Platelet Count 319 K/mm3 (142-424); Red Blood Count 4.16 M/mm3 (4.20-5.40); Red Cell Distribution Width 13.1 % (11.5-17.5); White Blood Count 6.3 K/mm3 (4.8-10.8)
[2021-10-16 18:18] LABS: Alanine Aminotransferase 22 U/L (12-78); Albumin Level 4.4 g/dl (3.5-5.0); Albumin/Globulin Ratio 1.8 (1.1-1.8); Alkaline Phosphatase 97 U/L (38-126); Anion Gap 11.5 mEq/L (5-15); Aspartate Amino Transferase 40 U/L (14-36); Bilirubin,Total 0.7 mg/dl (0.2-1.3); Blood Urea Nitrogen 11 mg/dl (7-17); Calcium 9.3 mg/dl (8.4-10.2); Carbon Dioxide 29 mmol/L (22.0-30.0); Chloride 103 mmol/L (98-107); Chol/HDL Ratio 3.2 (1-3.5); Cholesterol 195 mg/dl (140-200); Estimated Glomerular Filt Rate 88 ml/min (>60); GFR (African American) 107 ML/MIN (>60); Globulin 2.5 g/dL (1.3-3.2); Glucose 60 mg/dl (74-100); HDL Cholesterol 61 mg/dl (40-60); Potassium 4.5 mmoL/L (3.5-5.1); Sodium 139 mmol/L (136-145); Total Protein,Serum 6.9 g/dl (6.3-8.2); Triglycerides 101 mg/dl (30-150); VLDL Cholesterol 20 mg/dL (0-40)
[2021-10-16 18:28] LABS: Direct LDL Cholesterol 109.51 mg/dL (100-129)
== END ==
PROVIDERS: Visit Provider Internal Medicine
DX: R06.00 Dyspnea, unspecified (principal)
CPT/HCPCS: 80053; 80061; 85025

== ENCOUNTER 2022-03-12 11:44 | Emergency (ER) | payer BC, SELFPAY ==
[2022-03-12 12:10] VITALS: BP 121/72; PULSE 82; RESP 19; TEMP 37.1; O2SAT 98; BMI 25.9
[2022-03-12 12:22] LABS: Apearance,Urine Clear (Clear); Bilirubin,Urine Negative (Negative); Blood, Urine Negative (Negative); Color,Urine Yellow (Yellow); Glucose,Urine (UA) Negative (Negative); Ketones,Urine Negative (Negative); Protein,Urine Trace (Negative); Specific Gravity, Urine 1.025 (1.005-1.030); UTC Leukocyte Esterase,Urine Negative (Negative); UTC Nitrate,Urine Negative (Negative); Urobilinogen,Urine 0.2 EU/dl (0.2)
--- NOTE | 2022-03-12 12:42 | HMH.EDUTC ---
[facility] [place] Clinical Impression: Back ache Qualifiers: Back pain location: back pain in unspecified location Chronicity: acute Back pain laterality: bilateral Qualified Code(s): M54.9 - Dorsalgia, unspecified Headache Qualifiers: Headache type: unspecified Headache chronicity pattern: acute headache Intractability: not intractable Qualified Code(s): R51.9 - Headache, unspecified Disposition: Home, Self-Care Condition on Discharge: Fair Instructions: Low Back Pain, DI for Low Back Pain, DI for Headache Additional Instructions: Follow-up with your primary care physician in about 3 to 4 days if you do not feel better. Return to the emergency department immediately if you feel worse in any way. Prescriptions: Ketorolac Tromethamine [Toradol 10mg tablet] 10 mg PO Q6HP PRN #12 tab MDD 40mg/day PRN Reason: Pain Transmission Status: Received by [facility] Referrals: Benjie Wilson MD [Primary Care Provider] - Time of Disposition: 12:59 Medical Decision Making - Garrick Inquiry Pt receiving controlled substance: No Garrick was queried for this patient: No Vital Signs: 03/12/22 12:10 03/12/22 13:08 03/12/22 13:34 Temperature 98.8 F 98.9 F Temperature Source Oral Oral Pulse Rate 80 Pulse Rate [Left Brachial] 82 81 Respiratory Rate 19 16 18 Blood Pressure 139/80 Blood Pressure [Left Arm] 121/72 118/73 Blood Pressure Mean 92 Blood Pressure Mean [Left Arm] 88 88 Blood Pressure Source Blood Pressure Source [Left Arm] Automatic Cuff Blood Pressure Position Blood Pressure Position [Left Arm] Sitting Sitting 02 Sat by Pulse Oximetry 98 98 96 Oxygen Delivery Method Room Air Room Air Room Air 03/12/22 14:04 03/12/22 14:30 Temperature 98.0 F Temperature Source Pulse Rate 81 80 Pulse Rate [Left Brachial] Respiratory Rate 18 Blood Pressure 125/70 125/70 Blood Pressure [Left Arm] Blood Pressure Mean 102 Blood Pressure Mean [Left Arm] Blood Pressure Source Automatic Cuff Blood Pressure Source [Left Arm] Blood Pressure Position Sitting Blood Pressure Position [Left Arm] 02 Sat by Pulse Oximetry 97 Oxygen Delivery Method Room Air - Lab Data Lab results reviewed: Yes: I reviewed the patient's lab results. Lab Results 03/12/22 12:07: Urine Color Yellow, Urine Appearance Clear, Urine pH 7.0, Ur Specific [place] 1.025, Urine Protein Trace, Urine Glucose (UA) Negative, Urine Ketones Negative, Urine Blood Negative, Urine Nitrate Negative, Urine Bilirubin Negative, Urine Urobilinogen 0.2, Ur Leukocyte Esterase Negative 03/12/22 12:15: Urine Color Yellow, Urine Appearance Clear, Urine pH 6.5, Ur Specific [place] 1.015, Urine Protein Negative, Urine Glucose (UA) Negative, Urine Ketones Negative, Urine Blood Trace-i, Urine Nitrate Negative, Urine Bilirubin Negative, Urine Urobilinogen 0.2, Ur Leukocyte Esterase Negative, Urine RBC 10-20, Urine WBC Occasional, Ur Squamous Epith Cells 10-20, Urine Bacteria 2+ 03/12/22 13:26: WBC 4.3 L, RBC 4.10 L, Hgb 12.4, Hct 40.4, MCV 98.5, MCH 30.3, MCHC 30.7 L, RDW 13.1, Plt Count 206, MPV 8.1, Neut % (Auto) 88.5 H, Lymph % (Auto) 4.9 L, Real % (Auto) 4.0, Eos % (Auto) 1.7, Baso % (Auto) 0.9, Neut # (Auto) 3.8, Lymph # (Auto) 0.2 L, Real # (Auto) 0.2, Eos # (Auto) 0.1, Baso # (Auto) 0.0, Total Counted 100, Neutrophils % (Manual) 89 H, Lymphocytes % (Manual) 8 L, Monocytes % (Manual) 2, Eosinophils % (Manual) 1, Platelet Estimate Normal, RBC Morphology Normal 03/12/22 13:26: Sodium 137, Potassium 3.5, Chloride 105, Carbon Dioxide 27, Anion Gap 8.5, BUN 9, Creatinine 0.70, Estimated Creat Clear 104, Estimated GFR 88, Est GFR ( Amer) 106, Glucose 106 H, Calcium 9.1, Total Bilirubin 0.4, AST 34, ALT 21, Alkaline Phosphatase 95, Total Protein 7.0, Albumin 4.3, Globulin 2.7, Albumin/Globulin Ratio 1.6 Result diagrams: 03/12/22 13:26 03/12/22 13:26 Orders (Tests/Meds): ED MEDICATIONS Discontinued Medications Generic Name Do
--- NOTE | 2022-03-12 12:55 | PC.NURSE ---
PATIENT SENT TO ER PER Reena HUGGINS APRN FOR FURTHER EVALUATION. REPORT GIVEN TO Yael ZEE RN BY Reena HUGGINS APRN
[2022-03-12 13:07] VITALS: BMI 27.4
[2022-03-12 13:08] VITALS: BP 118/73; PULSE 81; RESP 16; TEMP 37.2; O2SAT 98; BMI 27.4
[2022-03-12 13:23] LABS: Microscopic, Urine URINE MICROSCOPIC (MICROSCOPIC)
[2022-03-12 13:27] LABS: Appearance,Urine CLEAR (Clear); Bilirubin,Urine Negative (Negative); Blood, Urine TRACE-I (Negative); Color,Urine YELLOW (Yellow); Glucose,Urine (UA) Negative (Negative); Ketones,Urine Negative (Negative); Leukocyte Esterase,Urine Negative (Negative); Nitrate,Urine Negative (Negative); PH,Urine 6.5 (5.0-8.5); Protein,Urine Negative (Negative); Specific Gravity, Urine 1.015 (1.005-1.030); Urobilinogen,Urine 0.2 EU/dl (0.2)
[2022-03-12 13:33] LABS: Basophils % 0.9 % (0.1-2.0); Eosinophils # 0.1 K/mm3 (0.0-0.4); Eosinophils % 1.7 % (0.1-12.0); Hematocrit 40.4 % (37.0-47.0); Hemoglobin 12.4 g/dL (12.2-16.2); Lymphocytes # 0.2 K/mm3 (0.7-4.5); Lymphocytes % 4.9 % (10-50); Mean Corpuscular HGB Conc 30.7 g/dL (31.8-35.4); Mean Corpuscular Hemoglobin 30.3 pg (27.0-31.2); Mean Corpuscular Volume 98.5 fl (81-99); Mean Platelet Volume 8.1 fl (7.4-10.4); Monocytes # 0.2 K/mm3 (0.1-1.0); Neutrophils # 3.8 K/mm3 (1.8-7.8); Neutrophils % 88.5 % (37.0-80.0); Platelet Count 206 K/mm3 (142-424); Red Cell Distribution Width 13.1 % (11.5-17.5); White Blood Count 4.3 K/mm3 (4.8-10.8)
[2022-03-12 13:34] VITALS: BP 139/80; PULSE 80; RESP 18; O2SAT 96
[2022-03-12 13:34] LABS: MANUAL DIFFERENTIAL MANUAL DIFFERENTIAL (MANUAL DIFF)
[2022-03-12 13:38] LABS: Chloride 105 mmol/L (98-107); Sodium 137 mmol/L (136-145)
--- NOTE | 2022-03-12 13:38 | HMH.EDGENADL ---
ED Disposition Clinical Impression: Back ache Qualifiers: Back pain location: back pain in unspecified location Chronicity: acute Back pain laterality: bilateral Qualified Code(s): M54.9 - Dorsalgia, unspecified Headache Qualifiers: Headache type: unspecified Headache chronicity pattern: acute headache Intractability: not intractable Qualified Code(s): R51.9 - Headache, unspecified Disposition: Home, Self-Care Condition on Discharge: Fair Instructions: DI for Headache, Low Back Pain, DI for Low Back Pain Additional Instructions: Follow-up with your primary care physician in about 3 to 4 days if you do not feel better. Return to the emergency department immediately if you feel worse in any way. Prescriptions: Ketorolac Tromethamine [Toradol 10mg tablet] 10 mg PO Q6HP PRN #12 tab MDD 40mg/day PRN Reason: Pain Transmission Status: Pending to [facility] Referrals: Benjie Wilson MD [Primary Care Provider] - - Critical Care Critical Care Time: No Attestation: On 03/12/22, the high probability of a clinically significant, sudden or life threatening deterioration of the following system(s) required my full and direct attention, intervention and personal management. The time I documented below is in addition to time spent performing reported procedures but includes the following listed in this critical care notation. Medical Decision Making - Garrick Inquiry Pt receiving controlled substance: No Vital Signs: 03/12/22 12:10 03/12/22 13:08 03/12/22 13:34 Temperature 98.8 F 98.9 F Temperature Source Oral Oral Pulse Rate 80 Pulse Rate [Left Brachial] 82 81 Respiratory Rate 19 16 18 Blood Pressure 139/80 Blood Pressure [Left Arm] 121/72 118/73 Blood Pressure Mean 92 Blood Pressure Mean [Left Arm] 88 88 Blood Pressure Source [Left Arm] Automatic Cuff Blood Pressure Position [Left Arm] Sitting Sitting 02 Sat by Pulse Oximetry 98 98 96 Oxygen Delivery Method Room Air Room Air Room Air 03/12/22 14:04 Temperature Temperature Source Pulse Rate 81 Pulse Rate [Left Brachial] Respiratory Rate Blood Pressure 125/70 Blood Pressure [Left Arm] Blood Pressure Mean 102 Blood Pressure Mean [Left Arm] Blood Pressure Source [Left Arm] Blood Pressure Position [Left Arm] 02 Sat by Pulse Oximetry 97 Oxygen Delivery Method Room Air - Lab Data Lab results reviewed: Yes: I reviewed the patient's lab results. Lab Results 03/12/22 12:07: Urine Color Yellow, Urine Appearance Clear, Urine pH 7.0, Ur Specific [place] 1.025, Urine Protein Trace, Urine Glucose (UA) Negative, Urine Ketones Negative, Urine Blood Negative, Urine Nitrate Negative, Urine Bilirubin Negative, Urine Urobilinogen 0.2, Ur Leukocyte Esterase Negative 03/12/22 12:15: Urine Color Yellow, Urine Appearance Clear, Urine pH 6.5, Ur Specific [place] 1.015, Urine Protein Negative, Urine Glucose (UA) Negative, Urine Ketones Negative, Urine Blood Trace-i, Urine Nitrate Negative, Urine Bilirubin Negative, Urine Urobilinogen 0.2, Ur Leukocyte Esterase Negative, Urine RBC 10-20, Urine WBC Occasional, Ur Squamous Epith Cells 10-20, Urine Bacteria 2+ 03/12/22 13:26: WBC 4.3 L, RBC 4.10 L, Hgb 12.4, Hct 40.4, MCV 98.5, MCH 30.3, MCHC 30.7 L, RDW 13.1, Plt Count 206, MPV 8.1, Neut % (Auto) 88.5 H, Lymph % (Auto) 4.9 L, [place] % (Auto) 4.0, Eos % (Auto) 1.7, Baso % (Auto) 0.9, Neut # (Auto) 3.8, Lymph # (Auto) 0.2 L, [place] # (Auto) 0.2, Eos # (Auto) 0.1, Baso # (Auto) 0.0, Total Counted 100, Neutrophils % (Manual) 89 H, Lymphocytes % (Manual) 8 L, Monocytes % (Manual) 2, Eosinophils % (Manual) 1, Platelet Estimate Normal, RBC Morphology Normal 03/12/22 13:26: Sodium 137, Potassium 3.5, Chloride 105, Carbon Dioxide 27, Anion Gap 8.5, BUN 9, Creatinine 0.70, Estimated Creat Clear 104, Estimated GFR 88, Est GFR ( Amer) 106, Glucose 106 H, Calcium 9.1, Total Bilirubin 0.4, AST 34, ALT 21, Alkaline Phosphatase 95, Total Protein 7.0, Albumin 4.3, Dionne
[2022-03-12 13:39] LABS: Potassium 3.5 mmoL/L (3.5-5.1)
[2022-03-12 13:41] LABS: Alanine Aminotransferase 21 U/L (12-78); Albumin Level 4.3 g/dl (3.5-5.0); Albumin/Globulin Ratio 1.6 (1.1-1.8); Alkaline Phosphatase 95 U/L (38-126); Anion Gap 8.5 mEq/L (5-15); Aspartate Amino Transferase 34 U/L (14-36); Bilirubin,Total 0.4 mg/dl (0.2-1.3); Blood Urea Nitrogen 9 mg/dl (7-17); Carbon Dioxide 27 mmol/L (22.0-30.0); Creatinine Clearance Estimated 104 mL/min (50-200); Estimated Glomerular Filt Rate 88 ml/min (>60); GFR (African American) 106 ML/MIN (>60); Globulin 2.7 g/dL (1.3-3.2)
[2022-03-12 13:42] LABS: Calcium 9.1 mg/dl (8.4-10.2); Glucose 106 mg/dl (74-100)
[2022-03-12 13:44] LABS: Eosinophils % 1 % (0-3); Lymphocytes % 8 % (10-50); Monocytes % 2 % (2-9); Neutrophils % 89 % (42-76); Total Cells Counted 100
[2022-03-12 13:45] LABS: Platelet Estimate Normal; RBC Morphology Normal
[2022-03-12 13:53] LABS: Bacteria,Urine 2+ /lpf; WBC,Urine Occasional #/hpf (0-3)
[2022-03-12 14:04] VITALS: BP 125/70; PULSE 81; O2SAT 97
--- NOTE | 2022-03-12 14:24 | PC.NURSE ---
checked on pt at this time, reports medication has helped. pt resting in bed with cold rag on her forehead. States no needs at this time, will continue to monitor.
[2022-03-12 14:30] VITALS: BP 125/70; PULSE 80; RESP 18; TEMP 36.7
== END 2022-03-12 14:30 | disposition home or self-care (01) ==
LOC: UTC 11:45 → ER 12:54
PROVIDERS: Emergency Medicine; Emergency Provider Nurse Practitioner; PCP Internal Medicine
DX: M54.9 Dorsalgia, unspecified (principal); R51.9 Headache, unspecified; Z87.19 Personal history of other diseases of the digestive system; E78.5 Hyperlipidemia, unspecified; Z72.0 Tobacco use; K21.9 Gastro-esophageal reflux disease without esophagitis
CPT/HCPCS: 80053; 81001; 81003; 85007; 85025; 87086; 96374; 96375; 99284; C9803; U0003; U0005

== ENCOUNTER 2022-04-06 08:39 | Day surgery (SDC) | payer BC, SELFPAY ==
[2022-04-04 08:26] VITALS: BMI 26.7
[2022-04-06 08:55] VITALS: BP 139/72; PULSE 74; RESP 18; TEMP 36.3; O2SAT 99
--- NOTE | 2022-04-06 09:14 | HMH.ANESCL ---
[facility] Anesthesia Checklist - Structural Data Admitted From: Home Planned Operative Procedure/s: egd/colonoscopy Consent for Planned Operative Procedure(s) Verified: Yes - Additional verifications Anesthesia Reactions: No - Airway Assessment C-Spine Mobility Assessed: Yes TMJ Mobility Assessed: Yes Dentition: Poor Dentition - Neurological Assessment Level of Consciousness: Awake, Alert, Appropriate - Anesthesia Plan Anesthesia Risk discussed: Yes Anesthesia Plan: Verified ASA Class: II Anesthesia Type: MAC [facility] History I have reviewed the patient's past medical history: Yes Medical History: Reports:: Gastroesophageal Reflux Disease(GERD), Hyperlipidemia Denies:: Cancer, Diabetes Mellitus Type 1, Diabetes Mellitus Type 2, Internal Pacemaker, MRSA, Seizures *Have you ever received a pneumonia vaccine?: Yes *Have you received a flu vaccine this season?: Yes Anesthesia experience/problems:: none Other Surgeries: Yes: Cholecystectomy, Colonoscopy, , Dilation and Curettage, EGD, Hysterectomy-Total, Tubal Ligation, Other. No: Pacemaker Amputation: No Fractures: No - *Social History Last grade of school completed: High school graduate Smoking Status: Current every day smoker Tobacco Type: cigarettes # Packs/Day (cigarettes): 1 Alcohol Intake: never Alcohol Intake Frequency:: other Substance Use Type: denies use *Occupational Status:: other Housing: house Household Members: spouse *Travel in the last 8 weeks: None Family Hx:: No significant family history
[2022-04-06 09:30] VITALS: O2SAT 99
--- NOTE | 2022-04-06 10:17 | HMH.SCOPE ---
- Procedure: Date: 04/06/22 Patient Date of :: 1970 Procedure Performed:: Esophagogastroduodenoscopy with biopsies Total colonoscopy with polypectomy by biopsy Indications:: Patient presents to the office for follow-up EGD and colonoscopy. She is a 52-year-old female. She had undergone colonoscopy by Dr. Blake in 1996 which was unremarkable. She had upper endoscopy and colonoscopy performed by Dr. 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 She had a follow-up upper endoscopy 6 months later on 02/15/2014. Dr. Chase performed colonoscopy on 08/03/2015 and recommended a 3-year follow-up. Of note, pathology from last upper endoscopy revealed reactive changes and chronic carditis without intestinal metaplasia. I performed upper endoscopy and colonoscopy on her on 01/19/2021. EGD revealed some reactive gastropathy and fundic gland polyps. Biopsies of the gastroesophageal junction revealed no evidence of any intestinal metaplasia. Colonoscopy revealed very poor colonic preparation with stool adherent to the calles. However she did have a tubular adenoma and hyperplastic polyp removed. Plan was made for early follow-up colonoscopy and EGD due to the poor prep and history of Chase's esophagus. She states that the magnesium citrate prep for her previous colonoscopy was poorly tolerated and tasted like castor oil . She states that she did better with GoLytely prep for this colonoscopy. Performing Provider:: Drew Webster MD Referring Provider:: Benjie Wilson MD Sedation:: MAC sedation Procedure:: Patient was taken to endoscopy procedure room. She was positioned in lateral decubitus position. Adequate intravenous sedation was achieved with anesthesia titration of propofol. Attention was first turned to upper endoscopy. Olympus endoscope was inserted via the oropharynx. Overall esophagus appeared unremarkable. Gastroesophageal junction was encountered. There was possible Chase's esophagus. Stomach was cannulated and insufflated. Retroflexion revealed no evidence of any pathologic hiatal hernia. There is some minor focal gastritis and minor gastropathy. Biopsy was obtained. Duodenum appeared unremarkable. Endoscope was withdrawn into the distal esophagus and several biopsies were obtained to evaluate for Chase's. Stomach was desufflated and endoscope was withdrawn. Attention was then turned to colonoscopy. Variable stiffness Olympus colonoscope was inserted via the anus. It was advanced to the cecum. Ileocecal valve and appendiceal orifice were identified. There was kelley stool coating the calles which was able to be partially cleared. Colonic preparation was therefore fair. Colonoscope was slowly withdrawn through the colon with careful surveillance and thorough irrigation and suctioning performed. The rectosigmoid region there was a subtle hyperplastic appearing polyp removed with cold biopsy forceps. She did have some diverticulosis. Colonoscope was withdrawn. Findings:: Gastroesophageal junction at 35 cm Possible Chase's esophagus focally at GE junction Minor gastropathy Fair colonic preparation Subtle hyperplastic appearing polyp at rectosigmoid Diverticulosis Recommendations:: Likely repeat colonoscopy 2 years given history of adenomatous polyp and fair preparation. May benefit from 1 to 2 weeks MiraLAX preceding bowel prep with GoLytely for next colonoscopy. Follow-up upper endoscopy pending biopsy findings Complications:: None immediate Estimated blood obtained (mL): 2
[2022-04-06 10:18] VITALS: BP 105/63; PULSE 72; RESP 16; TEMP 36.5; O2SAT 94
[2022-04-06 10:28] VITALS: BP 99/59; PULSE 62; RESP 16; O2SAT 95
[2022-04-06 10:38] VITALS: BP 120/77; PULSE 76; RESP 18; O2SAT 99
== END 2022-04-06 10:40 | disposition home or self-care (01) ==
LOC: OUTP 08:41
PROVIDERS: PCP Internal Medicine; Visit Provider Surgery
PROC: 0DJ08ZZ Inspection of Upper Intestinal Tract, Via Natural or Artificial Opening Endoscopic (ICD-10-PCS; CPT 43235; principal; 2022-04-06 09:30)
DX: K21.9 Gastro-esophageal reflux disease without esophagitis (principal); R13.10 Dysphagia, unspecified; E78.5 Hyperlipidemia, unspecified; Z12.11 Encounter for screening for malignant neoplasm of colon; K63.5 Polyp of colon
CPT/HCPCS: 43239; 45380; J2704

== ENCOUNTER → 2022-11-09 12:41 | Outpatient (CLI) | payer BC, SELFPAY ==
[2022-11-09 14:49] LABS: Alanine Aminotransferase 20 U/L (12-78); Albumin/Globulin Ratio 1.5 (1.1-1.8); Alkaline Phosphatase 102 U/L (38-126); Anion Gap 7.4 mEq/L (5-15); Aspartate Amino Transferase 29 U/L (14-36); Bilirubin,Total 0.6 mg/dl (0.2-1.3); Blood Urea Nitrogen 13 mg/dl (7-17); Calcium 8.9 mg/dl (8.4-10.2); Carbon Dioxide 29 mmol/L (22.0-30.0); Chloride 105 mmol/L (98-107); Chol/HDL Ratio 3.8 (1-3.5); Cholesterol 181 mg/dl (140-200); Estimated Glomerular Filt Rate 75 ml/min (>60); GFR (African American) 91 ML/MIN (>60); Globulin 2.6 g/dL (1.3-3.2); Glucose 88 mg/dl (74-100); HDL Cholesterol 48 mg/dl (40-60); Potassium 4.4 mmoL/L (3.5-5.1); Sodium 137 mmol/L (136-145); Total Protein,Serum 6.6 g/dl (6.3-8.2); Triglycerides 184 mg/dl (30-150); VLDL Cholesterol 37 mg/dL (0-40)
[2022-11-09 15:00] LABS: Direct LDL Cholesterol 100.23 mg/dL (100-129)
== END ==
LOC: LAB.DROPOF 12:42
PROVIDERS: PCP Internal Medicine; Visit Provider Internal Medicine
DX: Z00.8 Encounter for other general examination (principal)
CPT/HCPCS: 80053; 80061

== ENCOUNTER → 2023-01-22 08:18 | Outpatient (CLI) | payer BC, SELFPAY ==
--- NOTE | 2023-01-22 08:23 | MM_ITS ---
PROCEDURE INFORMATION: Exam: MG Bilateral Screening 3D Mammography Exam date and time: 01/22/2023 8:21 AM Age: 52 years old Clinical indication: Screening examination TECHNIQUE: Imaging protocol: Bilateral Screening tomosynthesis and 2D mammography including computer-aided detection (CAD) when performed. COMPARISON: 1. MG MM DIG SCREENING MAMM BI W/CAD 08/29/2021 10:57 AM 2. MG MM DIG SCREENING MAMM BI W/CAD 10/02/2019 9:21 AM FINDINGS: MAMMOGRAPHY: Breast composition: There are scattered areas of fibroglandular density. Mass: None. Architectural distortion: None. Calcifications: No suspicious calcifications. Asymmetric density: None. Skin thickening: None. Axillary adenopathy: None. IMPRESSION: No mammographic evidence of malignancy. Annual screening is recommended unless otherwise clinically indicated. ASSESSMENT: BI-RADS Category 1: Negative
== END ==
PROVIDERS: PCP Internal Medicine; Visit Provider Internal Medicine
DX: Z12.31 Encounter for screening mammogram for malignant neoplasm of breast (principal)
CPT/HCPCS: 77063; 77067

== ENCOUNTER 2023-10-22 12:37 | Outpatient (CLI) | payer BC, SELFPAY ==
--- NOTE | 2023-10-22 12:42 | XR_ITS ---
FINAL REPORT CLINICAL HISTORY: right hand pain FINDINGS: Right hand Three views were obtained. There is no acute fracture or dislocation. There are mild degenerative changes. No soft tissue abnormality is identified. IMPRESSION: Mild degenerative changes. Reviewed, Interpreted and Dictated by Drew Carr III, MD Transcribed by Karina Calvin Authenticated and [facility]
== END 2023-10-22 23:59 ==
PROVIDERS: PCP Internal Medicine; Visit Provider Orthopaedic Surgery
DX: M79.641 Pain in right hand (principal)
CPT/HCPCS: 73130

== ENCOUNTER 2024-04-29 08:58 | Outpatient (CLI) | payer BC, SELFPAY ==
--- NOTE | 2024-04-29 08:58 | MM_ITS ---
PROCEDURE INFORMATION: Exam: MG Bilateral Screening 3D Mammography Exam date and time: 04/29/2024 8:47 AM Age: 54 years old Clinical indication: Screening examination TECHNIQUE: Imaging protocol: Bilateral Screening tomosynthesis and 2D mammography including computer-aided detection (CAD) when performed. COMPARISON: 1. MG MM DIG SCREENING MAMM BI W/CAD 01/22/2023 8:21 AM 2. MG MM DIG SCREENING MAMM BI W/CAD 08/29/2021 10:57 AM FINDINGS: MAMMOGRAPHY: Breast composition: There are scattered areas of fibroglandular density. Mass: None. Architectural distortion: None. Calcifications: No suspicious calcifications. Asymmetric density: None. Skin thickening: None. Axillary adenopathy: None. IMPRESSION: No mammographic evidence of malignancy. Annual screening is recommended unless otherwise clinically indicated. ASSESSMENT: BI-RADS Category 1: Negative
== END 2024-04-29 23:59 | disposition home or self-care (01) ==
LOC: RAD 08:58
PROVIDERS: PCP Internal Medicine; Visit Provider Obstetrics & Gynecology
DX: Z12.31 Encounter for screening mammogram for malignant neoplasm of breast (principal)
CPT/HCPCS: 77063; 77067

== ENCOUNTER 2024-06-23 11:26 | Outpatient (CLI) | payer BC, SELFPAY ==
--- NOTE | 2024-06-23 11:31 | XR_ITS ---
FINAL REPORT CLINICAL HISTORY: Right shoulder pain COMPARISON: None FINDINGS: RIGHT SHOULDER Three views demonstrate no acute fracture or dislocation. The visualized joint spaces are normally aligned. The soft tissues are unremarkable. IMPRESSION: No acute bony abnormality. Reviewed, Interpreted and Dictated by Emeterio Mack MD Transcribed by Angelica Pinzon Authenticated and [facility]
== END 2024-06-23 23:59 | disposition home or self-care (01) ==
LOC: RAD 11:27
PROVIDERS: PCP Internal Medicine; Visit Provider Internal Medicine
DX: M25.511 Pain in right shoulder (principal)
CPT/HCPCS: 73030

== ENCOUNTER 2024-07-04 11:33 | Emergency (ER) | payer BC, SELFPAY ==
[2024-07-04] VITALS (12 sets, daily range): BP systolic 108–149; BP diastolic 67–104; PULSE 51–82; RESP 13–20; TEMP 36.7–36.8; O2SAT 97–99; BMI 25.7
--- NOTE | 2024-07-04 11:35 | ECG_ITS ---
APPROVED REPORT Exam: Resting ECG HR:74 bpm ECG Measurements Heart Rate 74 AXES IA 135 P 66 QRSd 85 QRS 76 QT 351 T 52 QTc 378 Conclusion SINUS RHYTHM NORMAL ECG Electronically signed by : Emmett Gaona, 07/04/2024 16:42:18
--- NOTE | 2024-07-04 11:41 | ED_ITS ---
Discharge Plan Disposition Patient Disposition: Home, Self-Care Condition: Fair Prescriptions Prescriptions: No Action Prilosec OTC 20 mg tablet,delayed release (DR/EC) 40 mg PO DAILY sertraline 50 mg tablet 150 mg PO DAILY Referrals Follow up/Referrals: Jake Wilson MD [Staff Physician] - See instructions Provider,MD Kristin [Primary Care Provider] - See instructions Activity Restrictions/Add. Instructions Additional Instructions/Restrictions: Please follow-up with Dr. Wilson for follow-up. His phone number to his office is [phone]. If your chest pain returns please come back to the emergency department for further evaluation. Clinical Impressions Clinical Impression: Chest pain Print Language Print Language: Icelandic Discharge ED Provider: Emmett Gaona General Chief Complaint: Chest Pain Stated Complaint: cp Time Seen by Provider: 07/04/24 11:37 History of Present Illness HPI narrative: Patient is a 54-year-old female past medical history of reflux presenting for chest and back pain. This pain has been off and on for about 1 week. Patient said that she has back spasms with her left-sided chest pressure. She has not noticed anything that makes it better or worse. 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 Patient said that she has intermittent shortness of air associated with the chest pressure. Patient said that it typically goes away on its own, but she woke up this morning was having this pain but did not go away. She has seen a orthopaedic physician assistant in the past and had a workup done that was negative. Patient said that the times that she has the chest pressure it seems to go to her left arm as well. Patient has taken no medications prior to arrival. At this time patient denies nausea, vomiting, diarrhea, abdominal pain, dysuria, fevers, chills Related Data Home Medications ?Medication ?Instructions ?Recorded ?Confirmed omeprazole magnesium 20 mg 40 mg PO DAILY stomach 08/11/18 06/23/24 tablet,delayed release (Prilosec OTC) sertraline 50 mg tablet 150 mg PO DAILY mood 12/29/20 06/23/24 Allergies Allergy/AdvReac Type Severity Reaction Status Date / Time No Known Allergies Allergy Verified 07/04/24 12:01 [facility] Disclaimer: The information contained in this section may have been updated after the patient was seen, as this information can be updated by other users. Medical History Mild sleep apnea HLD (hyperlipidemia) Headache Surgical History H/O neck surgery x2 History of bilateral salpingo-oophorectomy History of hysterectomy Total Hx of cervical discectomy Family History Other Cancer Hypertension Social History Smoking Status: Current every day smoker tobacco type: cigarettes packs per day: 1 alcohol intake: never substance use type: denies use current occupational status: other Travel in the last 8 weeks: None household members: spouse housing: house caffeine: Yes Other Medical History Have you received the Flu Vaccine for this season: No Have you received the Pneumonia Vaccine: No ROS Obtained: Yes Systems reviewed as appropriate & no additional complaints except as documented Physical Exam General General appearance: alert and in no apparent distress Head Head exam: atraumatic Eye Eye exam: Present normal appearance Chest Chest inspection: Present normal inspection and symmetric chest wall rise; Absent tenderness Respiratory Respiratory exam: Present normal lung sounds bilaterally; Absent respiratory distress or wheezes Cardiovascular Cardiovascular exam: Present regular rate, normal rhythm and normal heart sounds Abdominal Exam Abdominal exam: Present soft; Absent tenderness, guarding or rebound Neurological Exam Neurological exam: Present alert and oriented X3; Absent motor sensory deficit Psychiatric Psychiatric exam: Present normal affect HEART Score HEART Score HEART Score assessment performed?: Yes History (anamnesis): Slightly suspicious ECG: Normal Age: 45-65 years Risk factors: 1-2 risk factors Troponin: </= normal limit HEART Score: 2 Critical Care Critical Care Time Critical Care Time: No Medical Decision Making Medical Records Medical records reviewed: Yes I reviewed the patient's medical records. Garrick Inquiry Pt receiving controlled substance: No Vital Signs Vital Signs: 07/04/24 11:35 07/04/24 11:36 07/04/24 11:54 Temperature 98.2 F Temperature Source Oral Pulse Rate 82 82 Pulse Rate [Left] 82 Respiratory Rate 13 13 Blood Pressure 149/104 H 140/100 H Blood Pressure [Right Arm] 140/100 H Blood Pressure Mean [Right Arm] 113 Blood Pressure Source [Right Arm] Automatic Cuff Blood Pressure Position [Right Arm] Sitting 02 Sat by Pulse Oximetry 99 99 99 Oxygen Delivery Method Room Air Room Air Room Air 07/04/24 12:00 07/04/24 12:30 07/04/24 13:00 Temperature Temperature Source Pulse Rate 63 61 60 Pulse Rate [Left] Respiratory Rate 17 14 16 Blood Pressure 136/90 117/75 114/73 Blood Pressure [Right Arm] Blood Pressure Mean [Right Arm] Blood Pressure Source [Right Arm] Blood Pressure Position [Right Arm] 02 Sat by Pulse Oximetry 97 98 98 Oxygen Delivery Method Room Air Room Air Room Air 07/04/24 13:30 07/04/24 14:00 07/04/24 14:30 Temperature Temperature Source Pulse Rate 58 L 59 L 51 L Pulse Rate [Left] Respiratory Rate 17 16 17 Blood Pressure 111/68 109/70 L 108/67 L Blood Pressure [Right Arm] Blood Pressure Mean [Right Arm] Blood Pressure Source [Right Arm] Blood Pressure Position [Right Arm] 02 Sat by Pulse Oximetry 98 98 97 Oxygen Delivery Method Room Air Room Air Room Air 07/04/24 15:01 07/04/24 15:30 07/04/24 15:51 Temperature 98.0 F Temperature Source Pulse Rate 57 L 59 L 59 L Pulse Rate [Left] Respiratory Rate 19 20 13 Blood Pressure 122/68 122/73 122/73 Blood Pressure [Right Arm] Blood Pressure Mean [Right Arm] Blood Pressure Source [Right Arm] Blood Pressure Position [Right Arm] 02 Sat by Pulse Oximetry 98 97 Oxygen Delivery Method Room Air Room Air Lab Data Labs: Lab Results 07/04/24 11:38: WBC 7.1, RBC 4.89, Hgb 15.4, Hct 45.8, MCV 93.5, MCH 31.4 H, MCHC 33.6, RDW 13.2, Plt Count 308, MPV 7.1 L, Neut % (Auto) 44.0, Lymph % (Auto) 47.5, [place] % (Auto) 5.4, Eos % (Auto) 1.8, Baso % (Auto) 1.4, Neut # (Auto) 3.1, Lymph # (Auto) 3.4, [place] # (Auto) 0.4, Eos # (Auto) 0.1, Baso # (Auto) 0.1, Sodium 140, Potassium 4.1, Chloride 107, Carbon Dioxide 25, Anion Gap 12.1, BUN 13, Creatinine 0.70, Estimated Creat Clear 95, Estimated GFR 87, Est GFR ( Amer) 106, Glucose 111 H, Calcium 9.3, Total Bilirubin 0.7, AST 30, ALT 22, Alkaline Phosphatase 110, Troponin I < 0.01, Total Protein 7.4, Albumin 4.4, Globulin 3.0, Albumin/Globulin Ratio 1.5, Triglycerides 95, C holesterol 244 H, LDL Cholesterol Direct 144.55 H, VLDL Cholesterol 19, HDL Cholesterol 64 H, Cholesterol/HDL Ratio 3.8 H, HIV 1&2 Antibody Rapid Nonreactive 07/04/24 11:55: VBG pH 7.39, VBG pCO2 37.9, VBG pO2 54.3 H, VBG HCO3 22.3 L, VBG Total CO2 23.4, VBG O2 Saturation 89.1 H, VBG Base Excess -2.7 L, VBG Lactic Acid 2.1 H 07/04/24 14:34: Troponin I < 0.01 07/04/24 11:38 07/04/24 11:38 Response Orders (Tests/Meds): ED MEDICATIONS Discontinued Medications Generic Name Dose Route Start Last Admin Trade Name Dimitri PRN Reason Stop Dose Admin Al Hydrox/Mg Hydrox/Simethicone 30 ml 07/04/24 11:55 07/04/24 12:04 Aluminum/Magnesium/Simethicone 30ml Udc PO 07/04/24 11:56 30 ml ONCE ONE Administration Aspirin 324 mg 07/04/24 11:55 07/04/24 12:04 Aspirin 81mg Chewable Tablet PO 07/04/24 11:56 324 mg ONCE ONE Administration Lactated Ringer's 1,000 mls @ 999 mls/hr 07/04/24 14:03 07/04/24 14:08 Lactated Ringer's 1000 Ml Bag IV 07/04/24 15:03 999 mls/hr .Q1H1M ONE Administration Iopamidol 80 ml 07/04/24 12:14 07/04/24 12:16 Iopamidol-370 (76%);100ml Bottle IV 07/04/24 12:15 80 ml ONCE ONE Administration Nitroglycerin 0.4 mg 07/04/24 11:55 07/04/24 12:04 Nitroglycerin 0.4mg Sl Tablet SL 07/05/24 11:55 0.4 mg Q5MINP PRN Administration Chest Pain Ondansetron HCl 4 mg 07/04/24 11:55 07/04/24 12:04 Ondansetron 4mg/2ml Vial IV 07/04/24 11:56 4 mg ONCE ONE Administration Sodium Chloride 50 ml 07/04/24 12:14 07/04/24 12:16 0.9 % Sodium Chloride 50 Ml Vial IV 07/04/24 12:15 50 ml ONCE ONE Administration Sodium Chloride 10 ml 07/04/24 12:14 07/04/24 12:16 Sodium Chloride 0.9% 10ml Syr (Rad Only) IV 08/03/24 12:13 10 ml NEEDED PRN Administration Maintain IV Site ORDERS Category Date Time Status CT angio chest - dissection Stat Cat Scan 07/04/24 11:55 Completed XR chest 2V Stat Exams 07/04/24 11:55 Completed Complete Blood Count Auto Diff Stat Lab 07/04/24 11:38 Completed Comprehensive Metabolic Panel Stat Lab 07/04/24 11:38 Completed HIV (1&2) Antibody Rapid Stat Lab 07/04/24 11:38 Completed Hep C Ab with Reflex to RNA Stat Lab 07/04/24 11:38 Received Lipid Panel Stat Lab 07/04/24 11:38 Completed Troponin I Q3H Lab 07/04/24 14:34 Completed Troponin I Stat Lab 07/04/24 11:38 Completed Venous Blood Gas Stat RT 07/04/24 11:55 Completed MDM Narrative Medical Decision Narrative: In summary, this 54-year-old presents to the emergency department today with chest pain. On initial evaluation patient is nervous, but hemodynamically stable alert and in no acute distress. The pain that she is experiencing goes to her back and she has risk factors such as smoking. Pain does not change with ambulation or rest. She has a history of reflux but says that this pain is different. Differential diagnosis includes but is not limited to ACS, arrhythmia, aortic dissection, pneumonia, pulmonary embolism, reflux. Based on these concerns, I ordered laboratory evaluation and CTA. ECG personally interpreted demonstrates normal sinus rhythm, no acute ST elevations concerning for ischemia, intervals within normal limits, with rate of 74. Patient received aspirin, nitro and GI cocktail for treatment. Labs personally reviewed demonstrate mildly elevated lactate and 2 negative troponins. XR personally interpreted demonstrates no pneumothorax or pneumonia. CT imaging personally interpreted demonstrate no large aortic dissection or segmental pulmonary embolism or pneumonia. On reassessment chest pain has fully resolved and patient is feeling much better. I discussed with patient at bedside about following up with the cardiology referral that I gave her. Patient had 2 consecutive negative troponins. Patient has a heart score of 2. patient was given strict return precautions, all questions were answered and patient discharged
--- NOTE | 2024-07-04 11:55 | XR_ITS ---
PROCEDURE INFORMATION: Exam: XR Chest Exam date and time: 07/04/2024 12:00 PM Age: 54 years old Clinical indication: Pain; Chest pressure; Additional info: Chest pain TECHNIQUE: Imaging protocol: Radiologic exam of the chest. Views: 2 views. COMPARISON: CT CHEST WO CON 01/11/2021 3:09 PM FINDINGS: Lungs: Unremarkable. No consolidation. Pleural spaces: Unremarkable. No pleural effusion. No pneumothorax. Heart/Mediastinum: Unremarkable. No cardiomegaly. Bones/joints: Unremarkable. IMPRESSION: No acute cardiopulmonary process.
--- NOTE | 2024-07-04 11:55 | CT_ITS ---
PROCEDURE INFORMATION: Exam: CTA Chest With Contrast Exam date and time: 07/04/2024 12:17 PM Age: 54 years old Clinical indication: Pain; Chest pressure; Additional info: Chest and back pain, worse this morning TECHNIQUE: Imaging protocol: Computed tomographic angiography of the chest with contrast. Exam focused on the arteries. 3D rendering (Not supervised by radiologist): MIP and/or 3D reconstructed images were created by the technologist. Radiation optimization: All CT scans at this facility use at least one of these dose optimization techniques: automated exposure control; mA and/or kV adjustment per patient size (includes targeted exams where dose is matched to clinical indication); or iterative reconstruction. Contrast material: ISOVUE 370; Contrast volume: 80 ml; Contrast route: INTRAVENOUS (IV); COMPARISON: CT CHEST WO CON 01/11/2021 3:09 PM FINDINGS: Pulmonary arteries: Main pulmonary artery is nondilated. There are no filling defects in the segmental branches of the pulmonary arteries. Aorta: The thoracic aorta is intact. Trachea: Trachea and proximal airways are patent. Lungs: There is a calcified granuloma in the right lower lobe. The lungs are otherwise clear. Pleural spaces: There is no pneumothorax or pleural effusion. Heart: There is no cardiomegaly or pericardial effusion. Lymph nodes: There are no enlarged lymph nodes in the mediastinum and hilum. There is a calcified node in the subcarinal region. Bones/joints: The osseous structures demonstrate no abnormalities. Soft tissues: Unremarkable. IMPRESSION: 1. No evidence of pulmonary embolism. 2. Lungs are clear.
[2024-07-04] MEDS: ALUMINUM/MAGNESIUM/SIMETHICONE 30ML UDC 30 ML PO (12:04)
[2024-07-04] MEDS: NITROGLYCERIN 0.4MG SL TABLET 0.4 MG SL (12:04)
[2024-07-04] MEDS: ONDANSETRON 4MG/2ML VIAL 4 MG IV (12:04)
[2024-07-04] MEDS: ASPIRIN 81MG CHEWABLE TABLET 324 MG PO (12:04)
--- NOTE | 2024-07-04 12:05 | PC.NURSE ---
Notified RT of VBG order
--- NOTE | 2024-07-04 12:09 | PC.NURSE ---
Pt gone to CT via wheelchair
[2024-07-04 12:10] LABS: Albumin Level 4.4 g/dl (3.5-5.0); Basophils # 0.1 K/mm3 (0-0.2); Basophils % 1.4 % (0.1-2.0); Chloride 107 mmol/L (98-107); Eosinophils # 0.1 K/mm3 (0.0-0.4); Eosinophils % 1.8 % (0.1-12.0); Hematocrit 45.8 % (37.0-47.0); Hemoglobin 15.4 g/dL (12.2-16.2); Lymphocytes # 3.4 K/mm3 (0.7-4.5); Lymphocytes % 47.5 % (10-50); Mean Corpuscular HGB Conc 33.6 g/dL (31.8-35.4); Mean Corpuscular Hemoglobin 31.4 pg (27.0-31.2); Mean Corpuscular Volume 93.5 fl (81-99); Mean Platelet Volume 7.1 fl (7.4-10.4); Monocytes # 0.4 K/mm3 (0.1-1.0); Monocytes % 5.4 % (1.7-9.3); Neutrophils # 3.1 K/mm3 (1.8-7.8); Platelet Count 308 K/mm3 (142-424); Potassium 4.1 mmoL/L (3.5-5.1); Red Blood Count 4.89 M/mm3 (4.20-5.40); Red Cell Distribution Width 13.2 % (11.5-17.5); Sodium 140 mmol/L (136-145); White Blood Count 7.1 K/mm3 (4.8-10.8)
[2024-07-04 12:12] LABS: Blood Urea Nitrogen 13 mg/dl (7-17); Creatinine Clearance Estimated 95 mL/min (50-200); Estimated Glomerular Filt Rate 87 ml/min (>60); GFR (African American) 106 ML/MIN (>60)
[2024-07-04 12:13] LABS: Alanine Aminotransferase 22 U/L (12-78); Albumin/Globulin Ratio 1.5 (1.1-1.8); Alkaline Phosphatase 110 U/L (38-126); Anion Gap 12.1 mEq/L (5-15); Aspartate Amino Transferase 30 U/L (14-36); Bilirubin,Total 0.7 mg/dl (0.2-1.3); Calcium 9.3 mg/dl (8.4-10.2); Carbon Dioxide 25 mmol/L (22.0-30.0); Cholesterol 244 mg/dl (140-200); Glucose 111 mg/dl (74-100); Total Protein,Serum 7.4 g/dl (6.3-8.2); Triglycerides 95 mg/dl (30-150); VLDL Cholesterol 19 mg/dL (0-40)
[2024-07-04 12:14] LABS: Chol/HDL Ratio 3.8 (1-3.5); HDL Cholesterol 64 mg/dl (40-60)
[2024-07-04] MEDS: SODIUM CHLORIDE 0.9% 10ML SYR (RAD ONLY) 10 ML IV (12:16)
[2024-07-04] MEDS: 0.9 % SODIUM CHLORIDE 50 ML VIAL IV (12:16)
[2024-07-04] MEDS: IOPAMIDOL-370 (76%);100ML BOTTLE 80 ML IV (12:16)
[2024-07-04 12:17] LABS: VBG Base Excess -2.7 mmol/L (-2.4-2.3); VBG HCO3 22.3 mmol/L (23-30); VBG Oxygen Saturation 89.1 % (50-70); VBG PCO2 37.9 mmol/L (35-51); VBG PH 7.39 mmol/L (7.31-7.41); VBG PO2 54.3 mmol/L (28-40); VBG Total CO2 23.4 mmol/L (23-27)
[2024-07-04 12:18] LABS: Lactate Venous 2.1 mmol/L (0.4-2.0)
--- NOTE | 2024-07-04 12:20 | PC.NURSE ---
Pt returned to room from CT
[2024-07-04 12:24] LABS: Direct LDL Cholesterol 144.55 mg/dL (100-129)
[2024-07-04 12:47] LABS: Troponin I < 0.01 ng/ml (0.00-0.034)
--- NOTE | 2024-07-04 12:54 | PC.NURSE ---
pt was given a warm blanket
--- NOTE | 2024-07-04 13:25 | PC.NURSE ---
Rounded on pt. No needs voiced at this time. Call light remains within reach.
[2024-07-04] MEDS: LACTATED RINGERS 1000ML 1,000 ML 999 ML IV (14:08)
[2024-07-04 15:13] LABS: Troponin I < 0.01 ng/ml (0.00-0.034)
[2024-07-04 16:18] LABS: Reflex Lactic Add Lactic Reflex
[2024-07-04 17:02] LABS: HIV (1&2) Antibody Rapid NONREACTIVE (NONREACTIVE)
[2024-07-07 05:10] LABS: HCV Ab Non Reactive (Non Reactive)
== END 2024-07-04 15:51 | disposition home or self-care (01) ==
PROVIDERS: Emergency Provider Student in an Organized Health Care Education/Training Program
DX: R07.9 Chest pain, unspecified (principal); M54.9 Dorsalgia, unspecified; R06.02 Shortness of breath
CPT/HCPCS: 71046; 71275; 80053; 80061; 82803; 84484; 85025; 86803; 87389; 93005; 96361; 96374; 99285; J2405; J7120; Q9967

== ENCOUNTER 2024-08-11 10:40 | Outpatient (CLI) | payer BC, SELFPAY ==
--- NOTE | 2024-08-11 10:42 | XR_ITS ---
FINAL REPORT CLINICAL HISTORY: Right anterior chest pain post fall 08-10-24 COMPARISON: 10/27/2019 FINDINGS: Two views of the chest were obtained. The heart size and pulmonary vascularity are within normal limits. The mediastinum is normal. No acute pulmonary abnormality is identified. There is no pneumothorax. There are postoperative changes of the lower cervical spine. The bony thorax is intact. IMPRESSION: No active cardiopulmonary disease. Reviewed, Interpreted and Dictated by Drew Carr III, MD Transcribed by Angelica Pinzon Authenticated and . [facility]
--- NOTE | 2024-08-11 10:42 | XR_ITS ---
FINAL REPORT CLINICAL HISTORY: Fall on 08/10/2024-posterior neck pain and stiffnes COMPARISON: None FINDINGS: CERVICAL SPINE 5 views were obtained. There is fusion from C5-6 through C6-7. There is no acute fracture or malalignment. Inter-vertebral disc and vertebral body heights are preserved. Cervical lordosis is preserved. Facet joints are properly aligned. There are mild degenerative changes. IMPRESSION: Degenerative changes without acute process. Reviewed, Interpreted and Dictated by Drew Carr III, MD Transcribed by Angelica Pinzon Authenticated and [facility]
== END 2024-08-11 23:59 | disposition home or self-care (01) ==
LOC: RAD 10:40
PROVIDERS: PCP Internal Medicine; Visit Provider Internal Medicine
DX: M54.2 Cervicalgia (principal); R07.9 Chest pain, unspecified
CPT/HCPCS: 71046; 72050

== ENCOUNTER 2024-08-28 09:44 | Outpatient (CLI) | payer BC, SELFPAY ==
[2024-08-28 10:10] VITALS: BMI 25.1
[2024-08-28 10:34] LABS: White Blood Count 5.4 K/mm3 (4.8-10.8)
[2024-08-28 10:35] LABS: Basophils # 0.1 K/mm3 (0-0.2); Basophils % 1.5 % (0.1-2.0); Eosinophils # 0.2 K/mm3 (0.0-0.4); Eosinophils % 3.9 % (0.1-12.0); Hematocrit 39.5 % (37.0-47.0); Hemoglobin 13.6 g/dL (12.2-16.2); Lymphocytes # 2.5 K/mm3 (0.7-4.5); Lymphocytes % 45.6 % (10-50); Mean Corpuscular HGB Conc 34.4 g/dL (31.8-35.4); Mean Corpuscular Hemoglobin 31.7 pg (27.0-31.2); Mean Corpuscular Volume 92.1 fl (81-99); Monocytes # 0.3 K/mm3 (0.1-1.0); Monocytes % 5.6 % (1.7-9.3); Neutrophils # 2.3 K/mm3 (1.8-7.8); Neutrophils % 43.2 % (37.0-80.0); Platelet Count 296 K/mm3 (142-424); Red Blood Count 4.29 M/mm3 (4.20-5.40); Red Cell Distribution Width 12.1 % (11.5-17.5)
[2024-08-28 10:36] LABS: Chloride 107 mmol/L (98-107); Sodium 135 mmol/L (136-145)
[2024-08-28 10:37] LABS: Potassium 4.1 mmoL/L (3.5-5.1)
[2024-08-28 10:39] LABS: Blood Urea Nitrogen 12 mg/dl (7-17); Creatinine Clearance Estimated 93 mL/min (50-200); Estimated Glomerular Filt Rate 87 ml/min (>60); GFR (African American) 106 ML/MIN (>60)
[2024-08-28 10:40] LABS: Anion Gap 5.1 mEq/L (5-15); Calcium 9.3 mg/dl (8.4-10.2); Carbon Dioxide 27 mmol/L (22.0-30.0); Glucose 95 mg/dl (74-100)
== END 2024-08-28 23:59 | disposition home or self-care (01) ==
PROVIDERS: Nurse Anesthetist, Certified Registered; PCP Internal Medicine; Visit Provider Orthopaedic Surgery
DX: Z01.812 Encounter for preprocedural laboratory examination (principal)
CPT/HCPCS: 80048; 85025

== ENCOUNTER 2024-09-07 07:24 | Day surgery (SDC) | payer BC, SELFPAY ==
[2024-08-28 10:13] VITALS: BMI 25.1
[2024-09-07 07:36] VITALS: BP 115/70; PULSE 64; RESP 18; TEMP 36.3; O2SAT 98; BMI 25.1
--- NOTE | 2024-09-07 08:02 | EXP.ANES.CKL ---
[facility] Disclaimer: The information contained in this section may have been updated after the patient was seen, as this information can be updated by other users. Medical History Mild sleep apnea HLD (hyperlipidemia) Headache Surgical History H/O neck surgery x2 History of bilateral salpingo-oophorectomy History of hysterectomy Total Hx of cervical discectomy Family History Other Cancer Hypertension Social History Smoking Status: Current every day smoker tobacco type: cigarettes packs per day: 1 alcohol intake: never substance use type: denies use current occupational status: employed and other Travel in the last 8 weeks: None household members: spouse housing: house caffeine: Yes Have you lived/traveled outside [place] in past 30 days?: No Contact w/someone who lives/traveled outside [place] past 30 days?: No Exposure to someone with infectious disease in past 14 days?: No Do you have a fever (greater than 100.4 F or 38 C)?: No Have you tested positive for COVID-19: No Exposed to someone with COVID-19 in past 14 days?: No Do you have a sore throat?: No Do you have a cough?: No Do you have any weakness?: No Do you have any diarrhea?: No Are you experiencing any unusual bleeding?: No Do you have any muscle aches/pain?: No Do you have any abdominal pain?: No Are you experiencing loss of taste or smell?: No [facility] Anesthesia Checklist Patient Identification Patient Identification: Arm Band Structural Data Admitted From: Home Planned Operative Procedure/s: Right Trigger Thumb Release Consent for Planned Operative Procedure(s) Verified: Yes Verified Documents: Surgical Consent and History and Physical NPO Status Verified Time NPO: 00:00 Additional verifications Anesthesia Reactions: No Hx Blood Transfusions: No Blood Transfusion Reaction: No Airway Assessment Mallampati Score:: Class II C-Spine Mobility Assessed: Yes TMJ Mobility Assessed: Yes Dentition: Good Dentition Neurological Assessment Level of Consciousness: Awake, Alert and Appropriate Anesthesia Plan Anesthesia Risk discussed: Yes Anesthesia Plan: Verified ASA Class: II Anesthesia Type: MAC
[2024-09-07] MEDS: LIDOCAINE 1% W/EPI 1:100,000 20ML VIAL 20 ML (09:25)
--- NOTE | 2024-09-07 09:32 | P.OP_ITS ---
Date of procedure: 09/07/24 Pre-op Diagnosis:: Right trigger thumb Post-op Diagnosis:: Same Procedure performed:: A1 baldev release, trigger thumb release right side Surgeon:: Yoshi Hall DO CRYSTAL FINISHER:: Luis Mai Anesthesia: MAC and local Estimated blood loss (mL): 0 Operative findings:: See dictation Operative note:: Patient identified preoperatively. Right thumb marked with yes and my initials. Transported operative suite. Placed upon the operative bed with a hand table. Patient given sedation. Right upper extremity prepped and draped normal sterile fashion. Once prepped and draped final operative timeout performed to identify proper patient procedure and extremity. Everyone involved in the case agreed. There were no counter indications to beginning. She did receive preoperative antibiotics. Marking pen was used to make plan incision over the volar aspect A1 baldev right thumb. Local anesthesia was infiltrated 1% lidocaine with epinephrine. Esmarch was used to exsanguinate the extremity and pneumatic tourniquet inflated to 250 mmHg. Skin knife is used to incise the skin careful dissection was taken down with the scissors to identify the A1 baldev of the thumb. Retractors were placed. [place] blade was utilized to make small incision inside the A1 baldev and then the release of the A1 baldev was performed with scissors under direct loupe magnified visualization. Flexor tendons were brought outside the incision to make sure no adhesions and no further triggering. Once confirmed irrigation of the wound was performed skin was closed with nylon stitch sterile hand dressing placed patient waken from sedation taken recovery in stable condition. Condition: stable Disposition: PACU Complications:: None apparent
[2024-09-07 09:36] VITALS: BP 110/65; PULSE 102; RESP 17; TEMP 36.6; O2SAT 95
[2024-09-07 09:46] VITALS: BP 120/69; PULSE 95; RESP 16; O2SAT 96
[2024-09-07 09:56] VITALS: BP 117/80; PULSE 71; RESP 17; O2SAT 98
[2024-09-07 10:06] VITALS: BP 109/70; PULSE 86; RESP 16; TEMP 36.8; O2SAT 99
== END 2024-09-07 10:06 | disposition home or self-care (01) ==
PROVIDERS: PCP Internal Medicine; Visit Provider Orthopaedic Surgery
PROC: (CPT 26055; principal; 2024-09-07 09:00)
DX: M65.311 Trigger thumb, right thumb (principal)
CPT/HCPCS: 26055; 96374; J1100; J2250; J2405; J3010

== ENCOUNTER 2024-10-12 07:26 | Day surgery (SDC) | payer BC, SELFPAY ==
[2024-10-08 12:14] VITALS: BMI 24.9
[2024-10-12 07:46] VITALS: BP 114/80; PULSE 65; RESP 17; TEMP 36.8; O2SAT 99
[2024-10-12] MEDS: LACTATED RINGERS 1000ML 1,000 ML 50 ML IV (07:55)
--- NOTE | 2024-10-12 08:03 | EXP.ANES.CKL ---
[facility] Disclaimer: The information contained in this section may have been updated after the patient was seen, as this information can be updated by other users. Medical History Mild sleep apnea Headache Surgical History H/O neck surgery x2 History of bilateral salpingo-oophorectomy History of hysterectomy Total Hx of cervical discectomy Family History Other Cancer Hypertension Social History Smoking Status: Current every day smoker tobacco type: cigarettes packs per day: 1 alcohol intake: never substance use type: denies use current occupational status: employed Travel in the last 8 weeks: None household members: spouse housing: house caffeine: Yes Have you lived/traveled outside [place] in past 30 days?: No Contact w/someone who lives/traveled outside [place] past 30 days?: No Exposure to someone with infectious disease in past 14 days?: No Do you have a fever (greater than 100.4 F or 38 C)?: No Have you tested positive for COVID-19: No Exposed to someone with COVID-19 in past 14 days?: No Do you have a sore throat?: No Do you have a cough?: No Do you have any weakness?: No Do you have any diarrhea?: No Are you experiencing any unusual bleeding?: No Do you have any muscle aches/pain?: No Do you have any abdominal pain?: No Are you experiencing loss of taste or smell?: No [facility] Anesthesia Checklist Patient Identification Patient Identification: Arm Band Structural Data Admitted From: Home Planned Operative Procedure/s: EGD/Colonoscopy Consent for Planned Operative Procedure(s) Verified: Yes Verified Documents: Surgical Consent and History and Physical NPO Status Verified Time NPO: 00:00 Additional verifications Anesthesia Reactions: No Hx Blood Transfusions: No Blood Transfusion Reaction: No Airway Assessment Mallampati Score:: Class II C-Spine Mobility Assessed: Yes TMJ Mobility Assessed: Yes Dentition: Good Dentition Neurological Assessment Level of Consciousness: Awake, Alert and Appropriate Anesthesia Plan Anesthesia Risk discussed: Yes Anesthesia Plan: Verified ASA Class: II Anesthesia Type: MAC
[2024-10-12 08:05] VITALS: O2SAT 99
--- NOTE | 2024-10-12 08:08 | EXP.HP ---
History of Present Illness *Admission Date: 10/12/24 *History of present illness: Mrs. Prater is a 54-year-old female who is here for surveillance EGD and colonoscopy. 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 The patient also gets some dyspepsia, heartburn, gassiness and bloating. She has occasional early satiety. She reports no dysphagia. The examination is deemed medically necessary for EGD and colonoscopy. The patient has been seen, interviewed and examined prior to the procedure by both myself and the anesthesia provider. [facility] Disclaimer: The information contained in this section may have been updated after the patient was seen, as this information can be updated by other users. Medical History Mild sleep apnea Headache Surgical History H/O neck surgery x2 History of bilateral salpingo-oophorectomy History of hysterectomy Total Hx of cervical discectomy Family History Other Cancer Hypertension Social History Smoking Status: Current every day smoker tobacco type: cigarettes packs per day: 1 alcohol intake: never substance use type: denies use current occupational status: employed Travel in the last 8 weeks: None household members: spouse housing: house caffeine: Yes Have you lived/traveled outside [place] in past 30 days?: No Contact w/someone who lives/traveled outside [place] past 30 days?: No Exposure to someone with infectious disease in past 14 days?: No Do you have a fever (greater than 100.4 F or 38 C)?: No Have you tested positive for COVID-19: No Exposed to someone with COVID-19 in past 14 days?: No Do you have a sore throat?: No Do you have a cough?: No Do you have any weakness?: No Do you have any diarrhea?: No Are you experiencing any unusual bleeding?: No Do you have any muscle aches/pain?: No Do you have any abdominal pain?: No Are you experiencing loss of taste or smell?: No Other Medical History Have you received the Flu Vaccine for this season: No Have you received the Pneumonia Vaccine: No Review of Systems Review of Systems Review of systems (narrative): Negative *Cardiovascular Comments: Negative *Gastrointestinal Comments: Negative *Genitourinary Comments: Negative *Musculoskeletal Comments: Negative *Neurologic Comments: Negative Meds Home Medications and Allergies Home Medications ?Medication ?Instructions ?Recorded ?Confirmed ?Type omeprazole 40 mg capsule,delayed 40 mg PO DAILY 10/12/24 10/12/24 History release sertraline 100 mg tablet 100 mg PO DAILY 10/12/24 10/12/24 History New Prescriptions to Start Prescriptions: Allergies Allergy/AdvReac Type Severity Reaction Status Date / Time No Known Allergies Allergy Verified 10/12/24 07:42 Exam Data for Last 24 hours Vital signs and Labs for Last 24 Hours: Temp Pulse Resp BP Pulse Ox O2 Del Method O2 Flow Rate 98.3 F 65 17 114/80 99 Nasal Cannula 5 10/12/24 07:46 10/12/24 07:46 10/12/24 07:46 10/12/24 07:46 10/12/24 07:46 10/12/24 08:05 10/12/24 08:05 *Routine HEENT Exam Head: Present normocephalic Eye: Present EOMI and PERRL ENT: Present mucous membranes moist *Routine Neck Exam Neck: Present supple *Routine Respiratory Exam Respiratory: Present CTA bilaterally *Routine Cardiovascular Exam Cardiovascular: Present RRR *Routine Abdominal Exam Abdominal: Present soft and normoactive bowel sounds; Absent tenderness *Routine Rectal Exam Rectal:: deferred *Routine Genitalia Exam Genitalia:: deferred *Routine Extremities Exam Extremities: Absent cyanosis, clubbing or edema *Routine Skin Exam Skin: Present warm; Absent rash *Routine Neurological Exam Neurological: Present alert and oriented X3 Assessment and Plan *Assessment and plan (1) History of Chase's esophagus: Status: Acute Category: Medical Code(s): Z87.19 - Personal history of other diseases of the digestive system (2) Personal history of colon polyps, unspecified: Status: Acute Category: Medical Code(s): Z86.0100 - Personal history of colon polyps, unspecified (3) Internal prolapsed hemorrhoids: Status: Acute Category: Medical Code(s): K64.8 - Other hemorrhoids Plan A/P: 1. History of Chase's esophagus and personal history of colon polyps is the preprocedural diagnosis. The patient will be anesthetized/sedated using MAC sedation. The patient has been seen and examined. Cardiac and lung assessment prior to the examination is stable. Proceed with planned EGD and colonoscopy
--- NOTE | 2024-10-12 08:17 | P.PCN_ITS ---
[facility] Procedure Note Date: 10/12/24 Time: 08:28 Procedure Note:: Upper Endoscopy Procedure Report: Esophagogastroduodenoscopy with cold biopsies Endoscopost: Zen West II, MD Referring Physician: Benjie Wilson MD Date of Procedure: October 12, 2024 Equipment: Olympus GIF 190 standard upper endoscope Sedation: MAC sedation Indications: Mrs. Prater is a 54-year-old female who is here for surveillance upper endoscopy. The patient does have a prior history of Chase's esophagus. Her last EGD (Drew Webster MD) in March 2022 revealed no obvious Chase's and biopsies at that time showed no intestinal metaplasia. She did have an upper endoscopy with Dylan Berry M.D. in July 2013 and had Chase's esophagus with indeterminate for dysplasia. The patient does have heartburn and reflux which is fairly well-controlled with omeprazole. She does get some discomfort across epigastrium/dyspepsia with bloating, belching and some early satiety. She reports no dysphagia. Procedure: Prior to the procedure, a history and physical exam was performed, and patient's medications and allergies were reviewed. The risks, benefits and alternatives of the sedation and procedure were discussed with the patient. All questions were answered and informed consent was obtained. The patient was brought to the procedure room. Patient identification and proposed procedure were verified by the physician and the nurse. The patient was placed in a left lateral decubitus position and the scope was passed under direct vision. Throughout the procedure, the patient's blood pressure, pulse, and oxygen saturations were monitored continuously. The upper GI endoscopy was accomplished without difficulty. The patient tolerated the procedure well. Findings: The scope was passed directly into the upper esophagus and advanced to the third portion of the duodenum. The post bulbar duodenum and duodenal bulb were normal with normal mucosa and conniventes. The scope was withdrawn through a normal duodenal bulb and pylorus into the stomach. There was some mild linear reactive gastropathy of the antrum and body. Biopsies were obtained. The fundus of the stomach was normal. Upon retroflexion there was no hiatal hernia. The scope was then withdrawn into the esophagus. There was a serrated Z-line and 1 very small 3 to 4 mm island of salmon-colored mucosa. This would not meet criteria for Chase's esophagus. Biopsies were taken from the GE junction and NBI was utilized. There was no evidence of reflux esophagitis. There was a small proximal esophageal inlet patch. The remainder of the esophageal mucosa was normal. Impression: 1. Serrated squamocolumnar junction without obvious Chase's status post biopsies 2. Nonerosive GERD with mild esophageal dysmotility 3. Small proximal esophageal inlet patch 4. Mild linear reactive gastropathy Plan: I will follow-up the biopsies. The patient does have some chronic GERD and dyspepsia. We will discuss treatment options. I will proceed with surveillance colonoscopy.
--- NOTE | 2024-10-12 08:29 | HMH.PROCNOTE ---
[facility] Procedure Note Date: 10/12/24 Time: 08:43 Procedure Note:: Colonoscopy Procedure Report: Colonoscopy with cold snare polypectomy and hemorrhoid band ligation Endoscopist: Zen West II, MD Referring physician: Benjie Wilson MD Date of Procedure: October 12, 2024 Equipment: Olympus 190 variable stiffness pediatric colonoscope Sedation: MAC sedation Indication: Mrs. Prater is a 54-year-old female who is here for follow-up surveillance colonoscopy. The patient did have a colonoscopy in July 2013 (Dylan Berry M.D.) and polyps were removed. She also had a colonoscopy in July 2015 (Jay Chase) and polyps were removed. She had a colonoscopy in January 2021 at which time 4 polyps were removed (tubular adenoma x 1, mucosal prolapse polyps x 2 and hyperplastic polyp x 1) were removed. Her last colonoscopy was April 2022 at which time a single polyp (hyperplastic polyp) was removed. The patient does have some long-term mixed IBS and mild bowel irregularity (alternating diarrhea and constipation. She also reports frequent hemorrhoidal prolapse and some intermittent hemorrhoidal bleeding. She does get some chronic dyspepsia with upper abdominal discomfort. She reports no weight loss or family history of colon cancer. Procedure: Prior to the procedure, a history and physical exam was performed, and patient's medications and allergies were reviewed. The risks, benefits and alternatives of the sedation and procedure were discussed with the patient. All questions were answered and informed consent was obtained. The patient was brought to the procedure room. Patient identification and proposed procedure were verified by the physician and the nurse. The patient was placed in a left lateral decubitus position and the scope was passed under direct vision. Throughout the procedure, the patient's blood pressure, pulse, and oxygen saturations were monitored continuously. The colonoscopy was accomplished without difficulty. The patient tolerated the procedure well. Findings: On digital rectal examination there was normal rectal tone. There were no external hemorrhoids. There were external hemorrhoidal tags. The colonoscope was introduced through the anal canal to the rectum and advanced to the cecum. The ileocecal valve and appendiceal orifice were identified. The scope was advanced a short distance into the ileum which appeared grossly normal. The scope was then withdrawn into the colon. There was a single 4 mm polyp in the descending colon removed via cold snare polypectomy. The cecum, ascending, transverse, descending, sigmoid and rectum were grossly normal. There were no other mucosal abnormalities identified. Upon retroflexion within the rectum there were grade 2-3 internal hemorrhoids.3 columns of hemorrhoids were banded using 3 bands with excellent ligation effect. The preparation was excellent throughout with [place] Preparation Score of 9. The cecal time was 12 minutes. Impression: 1. Diminutive 4 mm descending colon polyp 2. Grade 2-3 internal hemorrhoids status post band ligation x 3 Plan: I will follow-up the polyp histology and recommend repeat surveillance colonoscopy again in 7 to 10 years based upon the pathology. I would encourage psyllium bulking fiber supplementation on a long-term daily maintenance basis.
[2024-10-12 08:53] VITALS: BP 96/52; PULSE 63; RESP 16; TEMP 36.6; O2SAT 97
[2024-10-12 09:03] VITALS: BP 106/55; PULSE 70; RESP 16; O2SAT 98
[2024-10-12 09:13] VITALS: BP 118/71; PULSE 66; RESP 16; O2SAT 97
[2024-10-12] MEDS: HYDROCODONE/APAP 5/325 MG TABLET 1 TAB (09:13)
[2024-10-12 09:23] VITALS: BP 103/65; PULSE 64; RESP 16; O2SAT 97
== END 2024-10-12 09:31 | disposition home or self-care (01) ==
PROVIDERS: PCP Internal Medicine; Visit Provider Internal Medicine Gastroenterology
PROC: 0DJ08ZZ Inspection of Upper Intestinal Tract, Via Natural or Artificial Opening Endoscopic (ICD-10-PCS; CPT 45378; principal; 2024-10-12 09:00)
DX: K64.8 Other hemorrhoids (principal); Z87.19 Personal history of other diseases of the digestive system; Z86.0100 Personal history of colon polyps, unspecified; K21.9 Gastro-esophageal reflux disease without esophagitis; K22.4 Dyskinesia of esophagus; K31.9 Disease of stomach and duodenum, unspecified; K63.5 Polyp of colon
CPT/HCPCS: 43239; 45385; 45398; C1889; J7120